=== PATIENT | male | born 1950 | race Caucasian/White ===

== ENCOUNTER 2022-07-22 11:57 | Outpatient (REF) | payer MEDICARE, SELFPAY ==
[2022-07-22 15:12] LABS: TSH reflex Free T4 0.59 uIU/mL (0.32-4.0)
== END 2022-07-22 11:58 | disposition home or self-care (01) ==
LOC: HO.WFDLDS 11:57
PROVIDERS: Visit Provider Hospitalist
DX: R63.5 Abnormal weight gain (principal)
CPT/HCPCS: 36415; 84443

== ENCOUNTER 2022-09-29 12:16 | Outpatient (REF) | payer MEDICARE, SELFPAY ==
[2022-09-30 13:33] LABS: Influenza A PCR NEGATIVE (Negative); Influenza B PCR NEGATIVE (Negative); Resp Syncy Virus RNA Qual PCR NEGATIVE (Negative); SARS COV2 PCR INHOUSE NEGATIVE (Negative)
== END 2022-09-29 12:17 | disposition home or self-care (01) ==
LOC: HO.LNP 12:16
PROVIDERS: Visit Provider Nurse Practitioner Family
DX: Z20.822 Contact with and (suspected) exposure to COVID-19 (principal); R09.89 Other specified symptoms and signs involving the circulatory and respiratory systems
CPT/HCPCS: 0241U

== ENCOUNTER 2022-12-07 11:28 | Outpatient (REF) | payer MEDICARE, SELFPAY ==
[2022-12-07 14:42] LABS: Estimated Average Glucose 154 mg/dL
[2022-12-07 15:12] LABS: Alanine Aminotransferase 15 U/L (0-31); Albumin Level 4.1 g/dL (3.5-5.0); Alkaline Phosphatase 93 U/L (39-117); Anion Gap 12 (12-20); Aspartate Amino Transferase 13 U/L (5-31); Bilirubin Total 0.8 mg/dL (0.0-1.0); Blood Urea Nitrogen 30 mg/dL (9-16); Calcium 9.1 mg/dL (8.4-10.2); Carbon Dioxide 29 mmol/L (22-29); Chloride 105 mmol/L (96-108); Cholesterol 234 mg/dL; Estimated Glomerular Filt Rate 56; Glucose Fasting 205 mg/dL (60-99); HDL Cholesterol 75 mg/dL; LDL Cholesterol Calculated 145 mg/dl; Potassium 5.1 mmol/L (3.3-5.1); Sodium 141 mmol/L (135-145); Total Protein 6.9 g/dL (6.5-8.0); Triglycerides 71 mg/dL; Uric Acid 6.3 mg/dL (2.4-5.7)
[2022-12-07 15:27] LABS: Erythrocyte Sedimentation Rate 27 MM/HR (0-20)
[2022-12-08 14:58] LABS: CRP High Sensitivity 3.8 mg/L
[2022-12-12 14:29] LABS: Vitamin D 25-OH, D2 <4 ng/mL; Vitamin D 25-OH, D3 28 ng/mL; Vitamin D 25-OH, Total 28 ng/mL (30-100)
== END 2022-12-07 11:29 | disposition home or self-care (01) ==
LOC: HO.WFDLDS 11:28
PROVIDERS: Visit Provider Hospitalist
DX: Z13.220 Encounter for screening for lipoid disorders (principal); E11.9 Type 2 diabetes mellitus without complications; E55.9 Vitamin D deficiency, unspecified; M15.0 Primary generalized (osteo)arthritis; M25.571 Pain in right ankle and joints of right foot; I10 Essential (primary) hypertension
CPT/HCPCS: 36415; 80053; 80061; 82306; 83036; 84550; 85652; 86141

== ENCOUNTER 2023-01-20 13:33 | Outpatient (REF) | payer MEDICARE, SELFPAY ==
--- NOTE | ~2023-01-20 | MM_ITS ---
EXAMINATION: MM SCREENING DIGITAL BREAST TOMOSYNTHESIS, BILATERAL CLINICAL INFORMATION: Screening. Asymptomatic. Prior vhp-or-lrgaq mammography currently unavailable. The lifetime risk of breast cancer based on the Tyrer-Cuzick Model is 3%. COMPARISON: None. TECHNIQUE: Digital breast tomosynthesis is performed in both the craniocaudal and mediolateral oblique views along with computer-aided detection (CAD). Synthesized 2D images are generated from the tomosynthesis. Additional left CC view is provided. FINDINGS: There are scattered areas of fibroglandular density (ACR BI-RADS breast composition Category b). Breast tissue composition borders on predominantly fatty. Background stromal and fibroglandular tissue is unremarkable. There is no significant mass, architectural abnormality, or abnormal calcifications. The axilla and skin contours are unremarkable. Radiology department staff will attempt to retrieve prior sbk-td-[id number] mammography to allow for comparison in an addendum report. MM/MM tomosynthesis screening BI IMPRESSION: No mammographic evidence of malignancy. ASSESSMENT: BI-RADS 1: Negative RECOMMENDATION: Routine annual mammography screening. This patient's information was entered into a reminder system with a target due date for their next mammogram.
== END 2023-01-20 13:34 | disposition home or self-care (01) ==
LOC: HO.MAMMO 13:33
PROVIDERS: Visit Provider Hospitalist
DX: Z12.31 Encounter for screening mammogram for malignant neoplasm of breast (principal)
CPT/HCPCS: 77063; 77067

== ENCOUNTER 2023-11-01 11:09 | Outpatient (AMB) | payer MEDICARE, SELFPAY ==
--- NOTE | 2023-11-01 11:29 | A.OFFPC_ITS ---
Vital Signs 11/01/23 11:30 Height 5 ft Weight 184 lb BMI 35.9 BP 130/80 Blood Pressure Location Lt brachial Position Sitting Pulse 79 Pulse Source Pulse Oximeter Pulse Oximetry (%) 99 Oxygen Delivery Method Room Air Intake Visit Reasons: Transfer From ( Medication Review ) Intake Note: Patient is here as a transfer, she would like to discuss brain fog with dizziness, vertigo, and tinnitis. She is discuss pressure. Allergies atorvastatin Adverse Reaction (Verified 11/01/23 11:35) Muscle Pain Medication List - Last Reconciled 11/01/23 by Sandeep Hitchcock MD blood pressure test kit-large check bp daily and as needed cholecalciferol (vitamin D3) 1,250 mcg PO QWEEK ibuprofen 600 mg PO TID irbesartan 150 mg PO DAILY 90 days latanoprost 0.005% 1 drp ophthalmic (eye) QPM magnesium oxide 500 mg PO DAILY melatonin 5 mg PO BEDTIME PRN 3 months sitagliptin phosphate (Januvia) 100 mg PO DAILY timolol 0.5% 1 drp ophthalmic (eye) DAILY Tobacco use date assessed: 11/01/23 Fall risk assessment: No Falls in past year Last assessed Fall Risk: 11/01/23 Dental Screening Dental Screen Date: 11/01/23 Did you have a dental visit in the last 12 months?: Yes Did you have a dental problem in the last 6 months where you did not have access to dental care?: No Was dental information given to patient?: Patient has dentist HPI Transfer From ( Medication Review ) HPI Details Transfer of Care Prior PCP:? Last office visit/CPE: Acute issue(s): Dizziness/Vertigo w tinnitus Mental fogginess Vision changes A1c today 11/01/23 is 6.6%. PMHx: HTN, DM, L leg fracture, Colon polyp 2006 followed q 3 yrs SurgHx: R hip, L tibia, Gallbladder, Partial colon resection FHx: Mom: DM2. Dad: DM2 SocHx: Nonsmoker. EtOH 1 glass 3x-4x per week. No drugs. PFSH Social History Housing: Apartment Patient Tobacco Use Status: Former Tobacco user e-Cigarette/Vaping Use: Never Used Second Hand Smoke Exposure: No service: No Current occupational status: retired Current occupational exposures/hazards: No Cognitive needs: No Hearing needs: No Vision needs: Yes Questionnaire PHQ-9 Over the last 2 weeks, how often have you been bothered by any of the following problems? 1. Little interest or pleasure in doing things: not at all 2. Feeling down, depressed, or hopeless: not at all 3. Trouble falling or staying asleep, or sleeping too much: nearly every day 4. Feeling tired or having little energy: nearly every day 5. Poor appetite or overeating: not at all 6. Feeling bad about yourself - or that you are a failure or have let yourself or your family down: not at all 7. Trouble concentrating on things, such as reading the newspaper or watching television: not at all 8. Moving or speaking so slowly that other people could have noticed. Or the opposite - being so fidgety or restless that you have been moving around a lot more than usual: not at all 9. Thoughts that you would be better off or of hurting yourself in some way: not at all Total score: 6 Source: Developed by Drs. Robbin Ragsdale, Shruthi Nair, Davey Petty and colleagues, with an educational snehal from [employer]. Thrive Questionnaire Date Thrive assessed: 12/07/22 I am a: Patient What is your living situation today?: I have a steady place to live Within the past 12 months, did the food you bought not last and you didn't have the money to get more?: Never true Within the past 12 months, did you worry whether your food would run out before you got money to buy more?: Never true Do you have trouble paying for medicines?: No Do you have trouble getting transportation to medical appointments?: No Do you have trouble paying your heating and electricity bill?: No Do you have trouble taking care of your child, family member or friend?: No Do you have trouble with day-to-day activities such as bathing, preparing meals, shopping, managing finances, etc.?: No Are you currently unemployed and looking for a job?: No Are you interested in more education?: No THRIVE Score: 0 AUDIT C Alcohol Use Questionnaire (AUDIT-C) 1. How often do you have a drink containing alcohol?: 2-3 times a week 2. How many drinks containing alcohol do you have on a typical day when you are drinking?: 1 or 2 3. How often do you have six or more drinks on one occasion?: Never Total Score: 3 JESSICA-7 AMB Questionnaire JESSICA-7 Date JESSICA - 7 assessed: 11/01/23 Feeling nervous, anxious, or on edge: 0 = Not at all Not being able to stop or control worryin = Not at all Worrying too much about different things: 0 = Not at all Trouble relaxin = Not at all Being so restless that it is hard to sit still: 0 = Not at all Becoming easily annoyed or irritable: 0 = Not at all Feeling afraid as if something awful might happen: 0 = Not at all Total JESSICA-7 score (0-4 normal; 5-9 mild; 10-14 moderate; 15-21 severe): 0 Source: Developed by Drs. Robbin Ragsdale, Shruthi Nair, Davey Petty and colleagues, with an educational snehal from [employer]. Review of Systems Const Denies chills, Denies fatigue, Denies fever(s), Denies headache(s) and Denies weakness ENT Reports dizziness and Denies headache(s) Card Denies chest pain, Denies lightheadedness, Denies dyspnea and Denies other (Palpitations) Resp Denies cough, Denies dyspnea, Denies wheezing and Denies other ( shortness of breath) Musc Denies numbness and Denies tingling Neuro Reports dizziness, Denies headache(s), Denies numbness, Denies tingling and Denies weakness Psych Denies anxiety and Denies depression Endo Denies fatigue Aller/Immun Denies wheezing Physical exam (Primary Care) Vital Signs: Last Vital Signs Pulse 79 11/01/23 11:30 BP 130/80 11/01/23 11:30 Pulse Ox 99 11/01/23 11:30 Oxygen Delivery Method Room Air 11/01/23 11:30 BMI result Body Mass Index 35.9 Tobacco/Smoking Status: Tobacco use Status Tobacco use date assessed 11/01/23 11/01/23 11:45 Patient Tobacco Use Status Former Tobacco user 11/01/23 11:45 e-Cigarette/Vaping Use Never Used 11/01/23 11:45 PHQ-9: PHQ-9 Score PHQ-9: Total score 6 11/01/23 11:55 Thrive Assessment: Date of Thrive Assessment Date Thrive assessed 12/07/22 11/01/23 11:45 Const General: no acute distress and well developed Nutritional Appearance: well nourished Orientation/consciousness: patient oriented x3 [facility] Head: Yes normocephalic and Yes atraumatic Eyes Other: Mild nystagmus on the R on eye exam General: appearance normal, both eyes and all related structures Pupils: Equal, round and reactive pupils present EOM: EOMs intact bilaterally Resp Effort & Inspection: normal respiratory effort Auscultation: clear to auscultation bilaterally Cardio Rate: regular rate Rhythm: regular rhythm Heart sounds: S1 normal heart sound present, S2 normal heart sound present, no gallops, no murmurs and no rubs Neuro General: patient oriented x3 and gait normal Cranial nerves: Yes Equal, round and reactive pupils present Psych Affect: normal affect Results AMB Hemoglobin A1c AMB Hemoglobin A1c 6.6 % Last Edit by Arline Ferris CMA on 11/01/23 12:12 Assessment and Plan Assessment & Plan (1) Diabetes: Code(s): E11.9 - Type 2 diabetes mellitus without complications Plan: A1c?6.6%.??Good?control. No?changes?to?current?medication?regimen (2) Dizziness: Code(s): R42 - Dizziness and giddiness Plan: Patient?notes?dizziness?and?unsteadiness?with?vertigo And?she?has?some?nystagmus?with?lateral?gaze.??She?also?notes?some?left- sided?vision?changes?though?she?says?no?cause?has?been?found?by?her?ophthalmolog ist. No?other?focal?neurologic?deficits?were?appreciated?today. Checking?labs?including?inflammatory?markers. Referred?her?to?Neurology (3) Hypertension: Code(s): I10 - Essential (primary) hypertension Plan: Blood?pressure?is?controlled.??Goal?is?less?than?140/90 Continue?current?medication (4) Vision changes: Code(s): H53.9 - Unspecified visual disturbance Plan: As?above,?left-sided?decreased?vision?at?her?oph thalmologist's?has?not?found?a?cause She?is?referred?to?neurology (5) Brain fog: Code(s): R41.89 - Other symptoms and signs involving cognitive functions and awareness Plan: As?above (6) Laboratory exam ordered as part of routine general medical examination: Code(s): Z00.00 - Encounter for general adult medical examination without abnormal findings Plan: Check?labs Orders: Orders Lipid Panel Today Z00.00 - Encounter for general adult medical examination without abnormal findings Microalbumin, Random (w Creat) Today I10 - Essential (primary) hypertension Erythrocyte Sedimentation Rate Today R42 - Dizziness and giddiness Comprehensive [place]. Panel Fast Today Z00.00 - Encounter for general adult medical examination without abnormal findings Complete Blood Count Auto Diff Today Z00.00 - Encounter for general adult medical examination without abnormal findings TSH reflex Free T4 Today Z00.00 - Encounter for general adult medical examination without abnormal findings UA and rflx microscopic Today Z00.00 - Encounter for general adult medical examination without abnormal findings CRP High Sensitivity Today R42 - Dizziness and giddiness Referrals Neurology Referral H53.9 - Unspecified visual disturbance, R41.89 - Other symptoms and signs involving cognitive functions and awareness, R42 - Dizziness and giddiness Coding Level of Care Code Est Pt Level 4 (86588) Diagnoses Diabetes E11.9 Dizziness R42 Hypertension I10 Vision changes H53.9 Brain fog R41.89 Laboratory exam ordered as part of routine general medical examination Z00.00
[2023-11-01 11:30] VITALS: BP 130/80; PULSE 79; O2SAT 99; BMI 35.9
== END 2023-11-01 12:12 | disposition home or self-care (01) ==
PROVIDERS: PCP Hospitalist; Visit Provider Family Medicine
DX: E11.9 Type 2 diabetes mellitus without complications (principal); R42 Dizziness and giddiness; I10 Essential (primary) hypertension; H53.9 Unspecified visual disturbance; R41.89 Other symptoms and signs involving cognitive functions and awareness
CPT/HCPCS: 83036; 99214

== ENCOUNTER 2023-11-03 10:12 | Outpatient (REF) | payer MEDICARE, SELFPAY ==
[2023-11-03 11:29] LABS: MANUAL DIFF FLAG NO
[2023-11-03 11:42] LABS: Basophils Percent Auto 0.5 % (0-2); Eosinophils Absolute Auto 0.1 X10*3/uL (0.0-0.4); Hematocrit 34.1 % (37.0-47.0); Hemoglobin 11.4 g/dl (12.0-16.0); Imm Gran Abs Auto 0.04 X10*3/uL (0.00-0.03); Imm Gran Pct Auto 0.5 % (0.0-0.4); Lymphocytes Absolute Auto 1.3 X10*3/uL (1.2-4.9); Lymphocytes Percent Auto 16.3 % (20-40); Mean Corpuscular HGB Conc 33.4 g/dl (31.0-35.0); Mean Corpuscular Hemoglobin 32.6 pg (27.0-33.0); Mean Corpuscular Volume 97.4 fL (80.0-98.0); Mean Platelet Volume 9.9 fL (9.4-12.3); Monocytes Absolute Auto 0.4 X10*3/uL (0.1-1.2); Monocytes Percent Auto 5.6 % (2-11); Neutrophils Absolute Auto 5.9 x10*3/uL (2.0-8.3); Neutrophils Percent Auto 76.1 % (45-73); Platelet Count 273 X10*3/uL (160-400); Red Cell Distribution Width 12.1 % (11.0-16.0); White Blood Count 7.7 X10*3/uL (4.8-10.8)
[2023-11-03 12:22] LABS: Alanine Aminotransferase 16 U/L (0-31); Alkaline Phosphatase 86 U/L (39-117); Anion Gap 12 (12-20); Aspartate Amino Transferase 16 U/L (5-31); Bilirubin Total 0.5 mg/dL (0.0-1.0); Blood Urea Nitrogen 26 mg/dL (9-16); Calcium 9.5 mg/dL (8.4-10.2); Carbon Dioxide 28 mmol/L (22-29); Chloride 101 mmol/L (96-108); Cholesterol 225 mg/dL (<200); Estimated Glomerular Filt Rate 47; Glucose Fasting 161 mg/dL (60-99); HDL Cholesterol 74 mg/dL (>40); LDL Cholesterol Calculated 137 mg/dL (<100); Potassium 4.9 mmol/L (3.3-5.1); Sodium 136 mmol/L (135-145); Total Protein 6.9 g/dL (6.5-8.0); Triglycerides 70 mg/dL (<150)
[2023-11-03 12:30] LABS: Erythrocyte Sedimentation Rate 21 MM/HR (0-20)
[2023-11-03 12:39] LABS: TSH reflex Free T4 0.54 uIU/mL (0.32-4.0)
[2023-11-03 15:16] LABS: Appearance Urine Cloudy; Color Urine Yellow; Glucose Urine UA Negative (Negative); Leukocyte Esterase Urine Small (1+) (Negative); Nitrite Urine Negative (Negative); PH 5.5 (5.0-9.0); UMIC TRIGGER UA YES; Urine Blood Negative (Negative); Urine Ketones Negative (Negative); Urine Protein Negative (Neg-Trace)
[2023-11-03 16:03] LABS: Bacteria Urine None Seen (None Seen); RBC Urine 0-2 /HPF (0-2); Squamous Epithelial Cell Urine >20 /HPF (0-2)
[2023-11-03 16:20] LABS: Creatinine Urine 222.04 mg/dL; Microalbum/Creatinine Ratio Ur 11.2 ug/mg cr (<30)
[2023-11-05 17:43] LABS: CRP High Sensitivity 1.5 mg/L
== END 2023-11-03 10:13 | disposition home or self-care (01) ==
LOC: HO.WFDLDS 10:12
PROVIDERS: Visit Provider Family Medicine
DX: Z00.00 Encounter for general adult medical examination without abnormal findings (principal); R42 Dizziness and giddiness; I10 Essential (primary) hypertension
CPT/HCPCS: 36415; 80053; 80061; 81001; 81003; 82043; 82570; 84443; 85025; 85652; 86141

== ENCOUNTER 2024-01-26 13:25 | Outpatient (REF) | payer MEDICARE, SELFPAY | END 2024-01-26 13:26 | disposition home or self-care (01) | LOC: HO.MAMMO 13:25 | PROVIDERS: PCP Family Medicine; Visit Provider Hospitalist | DX: Z12.31 Encounter for screening mammogram for malignant neoplasm of breast (principal) | CPT/HCPCS: 77063; 77067 ==

== ENCOUNTER → 2024-01-26 14:00 | Outpatient (BNV) | payer MEDICARE, SELFPAY | PROVIDERS: PCP Family Medicine; Visit Provider Radiology Diagnostic Radiology | DX: Z12.31 Encounter for screening mammogram for malignant neoplasm of breast (principal) | CPT/HCPCS: 77063; 77067 ==

== ENCOUNTER 2024-01-31 13:44 | Outpatient (AMB) | payer MEDICARE, SELFPAY ==
--- NOTE | 2024-01-31 14:04 | MHC.PC.OV ---
Vital Signs 01/31/24 14:05 Height 5 ft Weight 184 lb BMI 35.9 BP 134/82 Blood Pressure Location Lt brachial Position Sitting Pulse 86 Pulse Source Pulse Oximeter Pulse Oximetry (%) 96 Oxygen Delivery Method Room Air Intake Visit Reasons: cpe Intake Note: Patient is here today for her physical. Allergies atorvastatin Adverse Reaction (Verified 01/31/24 14:07) Muscle Pain Medication List - Last Reconciled 01/31/24 by Sandeep Hitchcock MD blood pressure test kit-large check bp daily and as needed cholecalciferol (vitamin D3) 1,250 mcg PO QWEEK ibuprofen 600 mg PO TID irbesartan 150 mg PO DAILY 90 days latanoprost 0.005% 1 drp ophthalmic (eye) QPM magnesium oxide 500 mg PO DAILY melatonin 5 mg PO BEDTIME PRN 3 months sitagliptin phosphate (Januvia) 100 mg PO DAILY timolol 0.5% 1 drp ophthalmic (eye) DAILY Tobacco use date assessed: 01/31/24 Fall risk assessment: No Falls in past year Last assessed Fall Risk: 01/31/24 Dental Screening Dental Screen Date: 11/01/23 HPI cpe HPI Details 73 y/o female presents for an extended exam with f/u labs and health maintenance. Labs were drawn 11/03/23. Reviewed labs with pt. Mild anemia. Triglycerides 70. TC 225. LDL 137. HDL 74. A1c today 01/31/24 7.5%. She is on Januvia. Pt reports ongoing complaints of dizziness/light sensitivity. Had seen ophthalmology about this and pt states work-up had been negative. She reports she has an appt. with neurology February 22. Pt reports ongoing diarrhea. Bone density test about 5-6 years ago. [facility] Social History Housing: Apartment Patient Tobacco Use Status: Former Tobacco user e-Cigarette/Vaping Use: Never Used Second Hand Smoke Exposure: No service: No Current occupational status: retired Current occupational exposures/hazards: No Cognitive needs: No Hearing needs: No Vision needs: Yes Questionnaire Thrive Questionnaire Date Thrive assessed: 12/07/22 JESSICA-7 AMB Questionnaire JESSICA-7 Date JESSICA - 7 assessed: 11/01/23 Source: Developed by Drs. Robbin Ragsdale, Shruthi B.W. Davey Nair and colleagues, with an educational snehal from [employer]. Review of Systems Const Denies chills, Denies fatigue, Denies fever(s), Denies headache(s) and Denies weakness Eyes Denies change in vision ENT Denies dizziness, Denies headache(s), Denies hearing loss, Denies nasal congestion, Denies sinus pain, Denies sinus pressure and Denies sore throat Card Denies chest pain, Denies lightheadedness, Denies dyspnea and Denies other (palpitations) Resp Denies cough, Denies dyspnea and Denies wheezing GI Reports diarrhea Denies hematuria and Denies dysuria Musc Denies abnormal gait, Denies myalgias, Denies arthralgias, Denies numbness and Denies tingling Skin/Breast Denies rash, Denies unusual bruising and Denies wounds Neuro Denies abnormal gait, Denies dizziness, Denies headache(s), Denies memory loss, Denies numbness, Denies Sensory deficit (Neuro), Denies tingling and Denies weakness Psych Denies anxiety, Denies depression and Denies memory loss Endo Denies cold intolerance, Denies fatigue, Denies heat intolerance, Denies polydipsia and Denies polyuria Jesus/Lymph Denies easy bleeding and Denies easy bruising Aller/Immun Denies wheezing Physical exam (Primary Care) Vital Signs: Last Vital Signs Pulse 86 01/31/24 14:05 BP 134/82 01/31/24 14:05 Pulse Ox 96 01/31/24 14:05 Oxygen Delivery Method Room Air 01/31/24 14:05 BMI result Body Mass Index 35.9 Tobacco/Smoking Status: Tobacco use Status Tobacco use date assessed 01/31/24 01/31/24 14:13 Patient Tobacco Use Status Former Tobacco user 01/31/24 14:13 e-Cigarette/Vaping Use Never Used 01/31/24 14:13 Thrive Assessment: Date of Thrive Assessment Date Thrive assessed 12/07/22 01/31/24 14:13 Const General: no acute distress, well developed, alert and awake Nutritional Appearance: well nourished Orientation/consciousness: patient oriented x3 [facility]EN[facility] Head: Yes normocephalic and Yes atraumatic Ears: hearing grossly normal bilaterally and TM's normal bilaterally General nose exam: Normal external nose present and Normal nares present Mouth: Normal oral and palatal mucosa present and moist mucous membranes Teeth and gingiva: dentition normal Throat: Yes posterior oropharynx normal Eyes General: appearance normal, both eyes and all related structures Pupils: Equal, round and reactive pupils present and Pupil accommodation reflex normal EOM: EOMs intact bilaterally Neck Neck: Yes normal visual inspection, Yes no lymphadenopathy and Yes trachea midline Thyroid: Thyroid normal Carotids: no bruits Lymphatic: no lymphadenopathy noted Chest Chest palpation & inspection: normal inspection of the chest Resp Effort & Inspection: normal respiratory effort Auscultation: clear to auscultation bilaterally Cardio Rate: regular rate Rhythm: regular rhythm Heart sounds: S1 normal heart sound present, S2 normal heart sound present, no gallops, no murmurs and no rubs Bruits: no abdominal aortic bruits and no carotid bruits GI Palpation (GI): No Abdominal aortic bruit present, Soft to palpation, nontender, No hepatosplenomegaly present and No Rebound tenderness present Auscultation: normal bowel sounds General: Yes no CVA tenderness Back/Spine/Pelvis Back: no CVA tenderness Cervical Spine: cervical ROM normal and No Cervical spine tenderness Thoracic/Lumbar Spine: thoraco-lumbar ROM normal, No pain with thoraco-lumbar ROM, No thoracic spinal tenderness and No lumbar spinal tenderness Skin Lesions: no lesions Rashes: no rashes Trauma: no lacerations or abrasions Wounds: no wounds Nails: normal Neuro General: patient oriented x3 Cranial nerves: Yes Equal, round and reactive pupils present Cognition (Neuro): normal cognition Gait exam (Neuro): Normal gait present Motor exam (neuro): 5/5 motor strength present throughout Sensory Exam: No Sensory deficit (Neuro) Deep tendon reflexes (DTR's): Right patellar reflex intensity grade: 2+ and Left patellar reflex intensity grade: 2+ Extrem General: Yes normal to inspection and No edema Psych Appearance: grossly normal Affect: normal affect Attitude: cooperative Thought process: Normal thought process present Results AMB Hemoglobin A1c AMB Hemoglobin A1c 7.5 % Last Edit by Yaneth Beckham CMA on 01/31/24 14:29 Results Reviewed Results Reviewed: Laboratory Last Values Hgb A1c (Clinic) 7.5 % (4.0-6.0) H 01/31/24 14:20 Assessment and Plan Assessment & Plan (1) Diabetes: Code(s): E11.9 - Type 2 diabetes mellitus without complications Plan: A1c?7.5%.??Goal?is?less?than?7.0% Continue?Januvia Adding?back?some?Trulicity?which?she?has?taken?before (2) Dizziness: Code(s): R42 - Dizziness and giddiness Plan: Ongoing?dizziness?and?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 Concern?for?occipital?stroke?and?possible?cerebellar?symptoms?as?well Checking?carotid?duplex Patient?has?an?appointment?with?Neurology?in?the?middle?of?next?month (3) Hypertension: Code(s): I10 - Essential (primary) hypertension Plan: Blood?pressure?is?controlled.??Goal?is?currently?less?than?140/90 Continue?current?medication If?patient?has?evidence?of?prior?stroke,?will?advise?a?goal?of?less?than?130/80 (4) Diarrhea: Code(s): R19.7 - Diarrhea, unspecified Plan: Chronic?diarrhea History?of?ulcerative?colitis Will?refer?to?Gastroenterology Advised?good?hydration Avoid?trigger?foods (5) Cervicalgia: Code(s): M54.2 - Cervicalgia Plan: Trapezius?and?neck?muscle?pain?and?tenderness?also?posterior?scalp?tenderness. Referred?to?physical?therapy (6) Shoulder pain: Code(s): M25.519 - Pain in unspecified shoulder Plan: Bilateral?shoulder?pain?as?well?as?trapezius?muscle?pain?as?above. Referred?to?physical?therapy (7) Hyperlipidemia: Code(s): E78.5 - Hyperlipidemia, unspecified Plan: LDL?cholesterol?is?above?goal?of?less?than?100?for?patient?with?diabetes. Some?concerns?regarding?possible?stroke?and?awaiting?appointment?with?Neurology. May?need?goal?of?less?than?70 Started?her?on?atorvastatin.??She?has?had?difficulty?tolerating?simvastatin?in?the?past. 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?in?[place] History?of?ulcerative?colitis Patient?is?referred?to?GI (11) Screening for osteoporosis: Code(s): Z13.820 - Encounter for screening for osteoporosis Plan: Overdue?for?screening?for?osteoporosis Order (12) Adult general medical exam: Code(s): Z00.00 - Encounter for general adult medical examination without abnormal findings Plan: 73-year-old?female?presents?for?extended?exam Orders: Orders AMB Hemoglobin A1c Today Z13.9 - Encounter for screening, unspecified PT Evaluation and Treatment Today M25.519 - Pain in unspecified shoulder, M54.2 - Cervicalgia, R42 - Dizziness and giddiness US carotid duplex BI Today R42 - Dizziness and giddiness XR DEXA axial skeleton Today M81.0 - Age-related osteoporosis without current pathological fracture Complete Blood Count Auto Diff Today Z00.00 - Encounter for general adult medical examination without abnormal findings Comprehensive [place]. Panel Fast Today Z00.00 - Encounter for general adult medical examination without abnormal findings Lipid Panel Today Z00.00 - Encounter for general adult medical examination without abnormal findings Referrals Gastroenterology Referral K51.90 - Ulcerative colitis, unspecified, without complications, R19.7 - Diarrhea, unspecified Medications: New dulaglutide (Trulicity) 0.75 mg (0.5 mL) subcut QWEEK 28 days 2 mL 3RF atorvastatin 20 mg PO BEDTIME 90 days 90 tabs 1RF Coding Level of Care Code Est Pt Level 4 (13104) Diagnoses Diabetes E11.9 Dizziness R42 Hypertension I10 Diarrhea R19.7 Cervicalgia M54.2 Shoulder pain M25.519 Hyperlipidemia E78.5 Mild anemia D64.9 Screening for breast cancer Z12.39 Screening for colon cancer Z12.11 Screening for osteoporosis Z13.820 Adult general medical exam Z00.00
[2024-01-31 14:05] VITALS: BP 134/82; PULSE 86; O2SAT 96; BMI 35.9
== END 2024-01-31 15:06 | disposition home or self-care (01) ==
LOC: HO.HMGFM 13:55
PROVIDERS: PCP Family Medicine; Visit Provider Family Medicine
DX: E11.9 Type 2 diabetes mellitus without complications (principal)
CPT/HCPCS: 83036; 99214

== ENCOUNTER 2024-02-10 14:18 | Outpatient (REF) | payer MEDICARE, SELFPAY ==
--- NOTE | ~2024-02-10 | US_ITS ---
EXAMINATION: US EXTRACRANIAL CAROTID DUPLEX, BILATERAL CLINICAL INFORMATION: Dizziness and giddiness COMPARISON: None available. TECHNIQUE: Real-time ultrasound and Doppler techniques (integrating B-mode 2-D vascular images, Doppler spectral analysis and color-flow Doppler imaging) were utilized to interrogate the extracranial carotid arteries, the vertebral arteries and proximal subclavian arteries bilaterally. The degree of stenosis is determined by criteria similar to NASCET. FINDINGS: Right Side: 1. There is no atherosclerotic plaque seen in the bifurcation/proximal ICA region. 2. The common carotid artery PSV proximally is 108 cm/s and distally 95 cm/s. 3. The proximal internal carotid artery velocities are 72 cm/s systolic and 14 cm/s diastolic. 4. The proximal external carotid artery PSV is 139 cm/s. 5. The vertebral artery shows antegrade flow. 6. The subclavian artery waveforms are normal. Left Side: 1. There is no atherosclerotic plaque seen in the bifurcation/proximal ICA region. 2. The common carotid artery PSV proximally is 120 cm/s and distally 101 cm/s. 3. The proximal internal carotid artery velocities are 97 cm/s systolic and 20 cm/s diastolic. 4. The proximal external carotid artery PSV is 132 cm/s. 5. The vertebral artery shows antegrade flow. 6. The subclavian artery waveforms are normal. Incidental note is made of a mildly enlarged lymph node along the left internal carotid artery measuring 1.1 x 0.6 x 0.7 cm. US/US carotid duplex BI IMPRESSION: 1. RIGHT: Normal right internal carotid artery without atherosclerotic plaque or hemodynamically significant stenosis. 2. LEFT: Normal left internal carotid artery without atherosclerotic plaque or hemodynamically significant stenosis.
== END 2024-02-10 14:19 | disposition home or self-care (01) ==
LOC: HO.US 14:18
PROVIDERS: PCP Family Medicine; Visit Provider Family Medicine
DX: R42 Dizziness and giddiness (principal)
CPT/HCPCS: 93880

== ENCOUNTER 2024-02-23 09:04 | Outpatient (AMB) | payer MEDICARE, SELFPAY ==
--- NOTE | 2024-02-23 09:09 | A.OFFVIS_ITS ---
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 Func - Confirm Intake Note: Pt presents for new pt evaluation for vertigo. 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 she also reports pressure points through out the body. she was fine until 1 year ago - she had a bout vertigo ( spinning sensation) , she did some exercises which helped when turns to left but still has dizziness when she turns to right . she feels like she is not right in space. she denies double vision. she also has chronic tinnitus which worsened in the past 1 year.she denies headaches but has light sensitivity . she started noticing neck tightness and discomfort 1 month ago and it radiates to the back of skull and neck and she has a sensitive spot . she denies depression or anxiety. ABout 6 months ago she started noticing points in her body that are painful and she calls them pressure points/ Ifs he moves her head quickly she feels like she is losing her vision briefly. she has trouble falling asleep and staying asleep and has daytime fatigue. 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 No head injuries. [facility] Medical History (Updated 02/23/24 @ 09:44 by Delisa Andrade MD) Insomnia Hypersomnia Vertigo Surgical History (Updated 02/23/24 @ 09:18 by Cinda Cochran CMA) Hx of cholecystectomy History of hip replacement History of colon resection Social History Housing: Apartment Patient Tobacco Use Status: Former Tobacco user e-Cigarette/Vaping Use: Never Used Second Hand Smoke Exposure: No service: No Current occupational status: retired Current occupational exposures/hazards: No Cognitive needs: No Hearing needs: No Vision needs: Yes Physical Exam Vital Signs: Last Vital Signs Pulse 80 02/23/24 09:14 Resp 16 05/15/24 09:14 BP 138/82 02/23/24 09:14 Pulse Ox 96 02/23/24 09:14 Oxygen Delivery Method Room Air 02/23/24 09:14 BMI result Body Mass Index 35.9 Const General: cooperative, healthy appearing and comfortable Nutritional Appearance: overweight Orientation/consciousness: patient oriented x3 Limitations: no limitations HEENT Other: neck tightness- left levator and splenius tenderness mild restricted range of motion Eyes Pupils: Equal, round and reactive pupils present Neuro General: patient oriented x3, gait normal, tone normal, moves all extremities and no focal motor deficits Cranial nerves: Yes Facial sensation intact/muscles of mastication intact, Yes Equal, round and reactive pupils present, Yes Bilaterally intact EOM present, Yes Nystagmus not present, Yes Normal facial strength present, Yes Midline tongue present, Yes Symmetric palate elevation present and Yes Ability to bilaterally elevate shoulders present Cognition (Neuro): normal cognition Gait exam (Neuro): Normal gait present Motor exam (neuro): 5/5 motor strength present throughout and Normal motor muscle tone present throughout Deep tendon reflexes (DTR's): Right triceps reflex intensity grade: 1+, Left triceps reflex intensity grade: 1+, Rt Biceps (C5, C6): 1+, Left biceps reflex intensity grade: 1+, Right brachioradialis reflex intensity grade: 1+, Left brachioradialis reflex intensity grade: 1+, Right patellar reflex intensity gra de: 1+ and Left patellar reflex intensity grade: 1+ Coordination: [id number] test normal Assessment & Plan Assessment & Plan (1) Vertigo: Comment: chronis with tinnitus / menieres ?vestibular dysfunction? vestibular migraine Code(s): R42 - Dizziness and giddiness Category: Medical (2) Hypersomnia: Code(s): G47.10 - Hypersomnia, unspecified Category: Medical (3) Insomnia: Code(s): G47.00 - Insomnia, unspecified Category: Medical (4) Cervicalgia: Comment: ? cervical dystonia related to arthritis Code(s): M54.2 - Cervicalgia Category: Medical Plan Home sleep study to r/o sleep apnea Check Vit b 12 ARY ENT eval MRI Brain - to r/o brainstem lesions I will trial her on gabapentin 100mg 1-3 caps qhs for neck pain Orders: Orders RT home sleep study Today G47.00 - Insomnia, unspecified, G47.10 - Hypersomnia, unspecified ARY Reflex Titer and Pattern Today G47.10 - Hypersomnia, unspecified, M25.519 - Pain in unspecified shoulder, M54.2 - Cervicalgia Vitamin B12 and Folate Today G47.10 - Hypersomnia, unspecified, M25.519 - Pain in unspecified shoulder, M54.2 - Cervicalgia MR head/brain wo con Today R42 - Dizziness and giddiness Referrals Ear/Nose/Throat Referral R42 - Dizziness and giddiness Medications: New gabapentin 1-3 caps orally bedtime; 90 caps 6RF Coding Level of Care Code New Pt Level 4 (19196) Diagnoses Vertigo R42 Hypersomnia G47.10 Insomnia G47.00 Cervicalgia M54.2
[2024-02-23 09:14] VITALS: BP 138/82; PULSE 80; RESP 16; O2SAT 96; BMI 35.9
== END 2024-02-23 09:54 | disposition home or self-care (01) ==
PROVIDERS: PCP Family Medicine; Visit Provider Psychiatry & Neurology Neurology
DX: R42 Dizziness and giddiness (principal); G47.10 Hypersomnia, unspecified; G47.00 Insomnia, unspecified; M54.2 Cervicalgia
CPT/HCPCS: 99204

== ENCOUNTER 2024-02-23 10:05 | Outpatient (REF) | payer MEDICARE, SELFPAY ==
[2024-02-23 13:24] LABS: Folate 5.6 ng/mL (> or = 4.0); Vitamin B12 409 pg/mL (200-900)
[2024-02-25 20:39] LABS: Anti Nuclear Antibody Screen NEGATIVE (NEGATIVE)
== END 2024-02-23 10:06 | disposition home or self-care (01) ==
LOC: HO.HKASLDS 10:05
PROVIDERS: Visit Provider Psychiatry & Neurology Neurology
DX: M54.2 Cervicalgia (principal); M25.519 Pain in unspecified shoulder; G47.10 Hypersomnia, unspecified; R42 Dizziness and giddiness; G47.00 Insomnia, unspecified
CPT/HCPCS: 36415; 82607; 82746; 86038; 99202

== ENCOUNTER 2024-02-24 13:35 | Outpatient (REF) | payer MEDICARE, SELFPAY ==
--- NOTE | ~2024-02-24 | MM_ITS ---
EXAMINATION: BONE DENSITOMETRY CLINICAL INDICATION: Osteoporosis. COMPARISON: This is the patient's baseline examination. TECHNIQUE: Using a 66. com DXA System (software version: 13.1) manufactured by [employer], dual-energy x-ray absorptiometry was performed of the lumbar spine and left hip. The images are of good technical quality. Summary results are attached. FINDINGS: LEFT FEMUR, NECK: BMD 0.907 g/cm2, Z-score 0.6, T-score -0.9, normal. LEFT FEMUR, TOTAL: BMD 1.031 g/cm2, Z-score 1.5, T-score 0.2, normal. AP SPINE L1-L4: BMD 1.273 g/cm2, Z-score 2.0, T-score 0.8, normal. IDENTIFIED RISK FACTORS: Menopause, height loss, history of fracture (adult), secondary osteoporosis (intestinal or bowel disease). HISTORY OF FRACTURE: Other. MEDICATIONS: Vitamin D. MM/XR DEXA axial skeleton IMPRESSION: 1. DIAGNOSIS: Normal bone density based on the lowest T-score value of -0.9 in the femoral neck applying World Health Organization criteria. 2. 10-YEAR FRACTURE RISK PREDICTION, FRAX: According to the guidelines, FRAX calculation should only be performed on patients in the osteopenia bone density category. Therefore, FRAX was not performed on this patient. 3. Treatment Recommendations: NOF guidelines recommend consideration for treatment in postmenopausal women and men age 50 and older presenting with the following: -A hip or vertebral (clinical or morphometric) fracture. -T-score less than or equal to -2.5 at the femoral neck or spine after appropriate evaluation to exclude secondary causes. -Low bone mass at the hip or spine and a 10-year fracture probability by FRAX of greater than or equal to 3% for hip fracture or greater than or equal to 20% for major osteoporotic fracture based on the [place] adapted WHO algorithm. 4. Other Recommendations: All treatment decisions require clinical judgment and consideration of individual patient factors, including patient preferences, comorbidities, previous drug use, risk factors not captured in the FRAX model (e.g. frailty, falls, vitamin D deficiency, increased bone turnover, interval significant decline in bone density) and possible under or overestimation of fracture risk by FRAX. FUTURE SCAN RECOMMENDATION: People with diagnosed cases of osteoporosis or at high risk for fracture should have regular bone mineral density tests. For patients eligible for Medicare, routine testing is allowed once every 2 years. The testing frequency can be increased to one year for patients who have rapidly progressing disease, those who are receiving or discontinuing medical therapy to restore bone mass, or have additional risk factors.
== END 2024-02-24 13:36 | disposition home or self-care (01) ==
LOC: HO.MAMMO 13:35
PROVIDERS: PCP Family Medicine; Visit Provider Family Medicine
DX: M81.0 Age-related osteoporosis without current pathological fracture (principal)
CPT/HCPCS: 77080

== ENCOUNTER → 2024-04-10 13:27 | Outpatient (REF) | payer MEDICARE, SELFPAY | LOC: HO.SL 13:27 | PROVIDERS: PCP Family Medicine; Visit Provider Psychiatry & Neurology Neurology | DX: G47.33 Obstructive sleep apnea (adult) (pediatric) (principal); G47.10 Hypersomnia, unspecified; G47.00 Insomnia, unspecified | CPT/HCPCS: 95806 ==

== ENCOUNTER → 2024-04-10 13:40 | Outpatient (BNV) | payer MEDICARE, SELFPAY | PROVIDERS: PCP Family Medicine; Visit Provider Psychiatry & Neurology Neurology | DX: G47.33 Obstructive sleep apnea (adult) (pediatric) (principal) | CPT/HCPCS: 95806 ==

== ENCOUNTER 2024-04-14 10:00 | Outpatient (REF) | payer MEDICARE, SELFPAY ==
--- NOTE | ~2024-04-14 | MR_ITS ---
EXAMINATION: MR BRAIN WITHOUT CONTRAST CLINICAL INFORMATION: Vertigo COMPARISON: None TECHNIQUE: Multiplanar multisequence MR imaging of the brain was obtained without intravenous contrast. FINDINGS: There is no acute infarct on diffusion-weighted imaging. There is no intracranial hemorrhage on iron-sensitive imaging. No extra-axial collection or mass effect/herniation. There are several scattered foci of nonspecific supratentorial white matter T2/FLAIR signal abnormality. No hydrocephalus. Mild age-appropriate generalized cerebral volume loss with commensurate sulcal and ventricular prominence. The major flow voids at the skull base are preserved. The midline structures are normal. The cerebellar tonsils are normally positioned. The craniocervical junction is normal. Degenerative changes in the upper cervical spine including severe left facet arthropathy at C2-C3. Marrow signal is within normal limits. The visualized soft tissues are without significant abnormality. Small right larger than left maxillary sinus retention cysts. MR/MR head/brain wo con IMPRESSION: Unremarkable noncontrast MRI of the brain.
== END 2024-04-14 10:01 | disposition home or self-care (01) ==
LOC: HO.MRI 10:00
PROVIDERS: PCP Family Medicine; Visit Provider Psychiatry & Neurology Neurology
DX: R42 Dizziness and giddiness (principal)
CPT/HCPCS: 70551

== ENCOUNTER 2024-04-21 16:15 | Outpatient (AMB) | payer MEDICARE, SELFPAY ==
[2024-04-21 16:37] VITALS: BP 120/60; PULSE 77; O2SAT 97; BMI 35.3
--- NOTE | 2024-04-21 16:37 | A.OFFPC_ITS ---
Vital Signs 04/21/24 16:37 Height 5 ft Weight 181 lb BMI 35.3 BP 120/60 Blood Pressure Location Lt brachial Position Sitting Pulse 77 Pulse Source Pulse Oximeter Pulse Oximetry (%) 97 Oxygen Delivery Method Room Air Intake Visit Reasons: f/u hypertension Intake Note: Patient is here to follow up on hypertension, and to follow up on MRI, which has not yet been read. Allergies No Known Allergies Allergy (Verified 04/21/24 16:40) Tobacco use date assessed: 01/31/24 Dental Screening Dental Screen Date: 11/01/23 HPI f/u hypertension HPI Details 74 y/o female presents to f/u hypertensi on, diabetes. Blood pressure today 120/60, 77p. She is on irbesartan 150mg daily. She reports ongoing diarrhea - last episode 1-2 weeks ago. Denies any blood in stools. Denies any nausea. Last A1c 7.5%. Had continued Januvia and added Trulicity but pt notes she has not started her Trulicity yet as she had been unsure if she should take this with Januvia. A1c today 04/21/24 6.3%. Does not have a way to check her blood sugars at home. [facility] Medical History (Updated 02/23/24 @ 09:44 by Delisa Andrade MD) Insomnia Hypersomnia Vertigo Surgical History (Updated 02/23/24 @ 09:18 by Cinda Cochran CMA) Hx of cholecystectomy History of hip replacement History of colon resection Social History Housing: Apartment Patient Tobacco Use Status: Former Tobacco user e-Cigarette/Vaping Use: Never Used Second Hand Smoke Exposure: No service: No Current occupational status: retired Current occupational exposures/hazards: No Cognitive needs: No Hearing needs: No Vision needs: Yes Questionnaire Thrive Questionnaire Date Thrive assessed: 12/07/22 JESSICA-7 AMB Questionnaire JESSICA-7 Date JESSICA - 7 assessed: 11/01/23 Source: Developed by Drs. Robbin Ragsdale, Shruthi Nair, Davey Petty and colleagues, with an educational snehal from [employer]. Physical exam (Primary Care) Vital Signs: Last Vital Signs Pulse 77 04/21/24 16:37 BP 120/60 04/21/24 16:37 Pulse Ox 97 07/12/24 16:37 Oxygen Delivery Method Room Air 04/21/24 16:37 BMI result Body Mass Index 35.3 Tobacco/Smoking Status: Tobacco use Status Tobacco use date assessed 01/31/24 04/21/24 16:38 Patient Tobacco Use Status Former Tobacco user 04/21/24 16:38 e-Cigarette/Vaping Use Never Used 04/21/24 16:38 Thrive Assessment: Date of Thrive Assessment Date Thrive assessed 12/07/22 04/21/24 16:38 Results AMB Hemoglobin A1c AMB Hemoglobin A1c 6.3 % Last Edit by Arline Ferris CMA on 04/21/24 17:23 Assessment and Plan Assessment & Plan (1) Hypertension: Code(s): I10 - Essential (primary) hypertension Plan: Blood?pressure?is?well?controlled.??Goal?is?less?than?140/90 Continue?current?medication (2) Diabetes: Code(s): E11.9 - Type 2 diabetes mellitus without complications Plan: Patient?had?not?started?Trulicity?but?she?has?made?lifestyle?changes She?continues?Januvia A1c?today?is?6.3%.??Good?control.??Goal?is?less?than?7.0% Continue?Januvia?and?diabetic?diet (3) Hyperlipidemia: Code(s): E78.5 - Hyperlipidemia, unspecified Plan: Labs?were?ordered?but?patient?has?not?had?them?drawn?yet. She?can?get?them?drawn?prior?to?next?visit (4) Cervicalgia: Comment: ? cervical dystonia related to arthritis Code(s): M54.2 - Cervicalgia Plan: Cervicalgia?and?also?vertigo. Holding?off?on?starting ?physical?therapy?while?neurology?works?up?visual?field?deficit. MRI?has?been?acquired?but?is?pending?results. (5) Diarrhea: Code(s): R19.7 - Diarrhea, unspecified Plan: This?appears?to?be?resolving.??She?has?been?using?some?Imodium. Can?continue?this She?will?let?me?know?if?she?has?any?bl ood?or?has?any?fevers?chills?nausea?vomiting?or?other?concerning?symptoms Hydrate?well Orders: Orders AMB Hemoglobin A1c Today Z13.9 - Encounter for screening, unspecified Coding Level of Care Code Est Pt Level 4 (69829) Diagnoses Hypertension I10 Diabetes E11.9 Hyperlipidemia E78.5 Cervicalgia M54.2 Diarrhea R19.7
== END 2024-04-27 15:20 | disposition home or self-care (01) ==
PROVIDERS: PCP Family Medicine; Visit Provider Family Medicine
DX: I10 Essential (primary) hypertension (principal); E11.69 Type 2 diabetes mellitus with other specified complication; E78.5 Hyperlipidemia, unspecified; M54.2 Cervicalgia; R19.7 Diarrhea, unspecified
CPT/HCPCS: 83036; 99214

== ENCOUNTER 2024-05-29 10:40 | Outpatient (AMB) | payer MEDICARE, SELFPAY ==
[2024-05-29 10:58] VITALS: BP 165/72; PULSE 73; BMI 36.6
--- NOTE | 2024-05-29 10:58 | MHC.OFFVIS ---
Vital Signs 05/29/24 10:58 Height 5 ft Weight 187 lb 6.287 oz BMI 36.6 BP 165/72 H Blood Pressure Location Rt brachial Position Sitting Pulse 73 Intake Visit Reasons: Ulcerative Colitis Intake Note: Rajni presents in the office as a new patient for UC. CC: She states that she was sent here today - she has projectile diarrhea after the first meal of the day. She states there is sometimes blood when she has diarrhea 4 times in a row. She has a history of colon cancer and had 10 inches of her colon removed due to that. Allergies No Known Allergies Allergy (Verified 05/29/24 11:00) HPI HPI Ulcerative Colitis: Details: HPI 74 yr old f here for assessment She has had constant brain fog for months, told she has RENA and and waiting for a machine she had brain MRI which was nml she has a painful spot in the head she has projectile diarrhea for 8 months she can have some blood in stool no nausea or vomiting appetite is good no dysphagia no GERD she had partial colectomy for flat polyp 2011 she moved back from [place] 2 yrs ago and last colonoscopy 3 yr ago TESTS: carotid us-- nml MRI: no masses, or infarcts ROS: Constitutional : No Weight loss, No Fever, No Chills ENT/Mouth : No sore throat, No Rhinorrhea Eyes: No Swelling, No Redness Cardiovascular : No Chest Pain, No SOB, No Edema Respiratory : No Cough, No Sputum, No Wheezing Gastrointestinal : see HPI Genitourinary : NO Dysuria, No Urinary Frequency, No Hematuria, No Urgency Musculoskeletal : + joint pain, No Myalgias, No Joint Swelling Skin : No Skin Lesions, No rash Neuro : No Weakness, + Numbness--left arm , + Dizziness, No Headache Psych : No Anxiety/Panic, No Depression Heme/Lymph: No Bruising, No Lymphadenopathy Endocrine : No Polyuria, No Polydipsia All other systems reviewed and are negative. Medical History Insomnia Hypersomnia Vertigo Surgical History (Updated 02/23/24 @ 09:18 by Cinda Cochran CMA) Hx of cholecystectomy History of hip replacement History of colon resection Social History ex smoker, no drugs, no alcohol EXAM: GENERAL: The patient is well developed and nontoxic. VITAL SIGNS:see workflow HEENT: Nonicteric sclerae, PERRLA, EOMI. Oropharynx clear. Moist mucous membranes. Conjunctivae appear well perfused. No thyroid mass. CHEST: Chest wall is nontender. HEART: Regular rate and rhythm without murmurs. LUNGS: Clear to auscultation bilaterally. ABDOMEN: Soft, positive bowel sounds, nontender, no organomegaly.no flank tenderness SKIN: No rash, no excessive bruising, petechiae, or purpura. NEUROLOGIC: Cranial nerves II-XII intact without motor/sensory deficit. Psych: normal affect A/P: 1/ Abn bowel habit, anemia, with hx of advanced polyp s/p resection, might have bile acid malabsorption, need to exclude coloni lesion, gastritis, enteritis, panc insuff PLAN: 1/ labs as ordered incl nutritional screen, panc elastase 2/ EGD and colonoscopy-suprep, stop januvia 3 d before 3/ maybe trial of cholestyramine PFSH Medical History Insomnia Hypersomnia Vertigo Surgical History Hx of colonoscopy Hx of cholecystectomy History of hip replacement History of colon resection Social History Housing: Apartment Patient Tobacco Use Status: Former Tobacco user e-Cigarette/Vaping Use: Never Used Second Hand Smoke Exposure: No service: No Current occupational status: retired Current occupational exposures/hazards: No Cognitive needs: No Hearing needs: No Vision needs: Yes Physical Exam Vital Signs: Last Vital Signs Pulse 73 05/29/24 10:58 BP 165/72 H 05/29/24 10:58 BMI result Body Mass Index 36.6 Assessment & Plan Assessment & Plan (1) Brain fog: Code(s): R41.89 - Other symptoms and signs involving cognitive functions and awareness Category: Medical Plan: see above (2) Mild anemia: Code(s): D64.9 - Anemia, unspecified Category: Medical Plan: see above (3) Nutrition deficiency due to insufficient food: Code(s): E63.9 - Nutritional deficiency, unspecified; T73.0XXA - Starvation, initial encounter Category: Medical Plan: see above Orders: Orders Vitamin K1 Today D64.9 - Anemia, unspecified, E63.9 - Nutritional deficiency, unspecified, M79.10 - Myalgia, unspecified site, R41.89 - Other symptoms and signs involving cognitive functions and awareness, T73.0XXA - Starvation, initial encounter Vitamin E Today D64.9 - Anemia, unspecified, E63.9 - Nutritional deficiency, unspecified, M79.10 - Myalgia, unspecified site, R41.89 - Other symptoms and signs involving cognitive functions and awareness, T73.0XXA - Starvation, initial encounter Vitamin B5 (Pantothenic Acid) Today D64.9 - Anemia, unspecified, E63.9 - Nutritional deficiency, unspecified, M79.10 - Myalgia, unspecified site, R41.89 - Other symptoms and signs involving cognitive functions and awareness, T73.0XXA - Starvation, initial encounter Vitamin B12 and Folate Today D64.9 - Anemia, unspecified, E63.9 - Nutritional deficiency, unspecified, M79.10 - Myalgia, unspecified site, R41.89 - Other symptoms and signs involving cognitive functions and awareness, T73.0XXA - Starvation, initial encounter Vitamin B1 Today D64.9 - Anemia, unspecified, E63.9 - Nutritional deficiency, unspecified, M79.10 - Myalgia, unspecified site, R41.89 - Other symptoms and signs involving cognitive functions and awareness, T73.0XXA - Starvation, initial encounter Immunoglobulins,IgG IgA IgM Today D64.9 - Anemia, unspecified, E63.9 - Nutritional deficiency, unspecified, M79.10 - Myalgia, unspecified site, R41.89 - Other symptoms and signs involving cognitive functions and awareness, T73.0XXA - Starvation, initial encounter Lactoferrin, Fecal, Quant. Today D64.9 - Anemia, unspecified, E63.9 - Nutritional deficiency, unspecified, K51.50 - Left sided colitis without complications, M79.10 - Myalgia, unspecified site, R41.89 - Other symptoms and signs involving cognitive functions and awareness, T73.0XXA - Starvation, initial encounter Transglutaminase IgA Today D64.9 - Anemia, unspecified, E63.9 - Nutritional deficiency, unspecified, M79.10 - Myalgia, unspecified site, R41.89 - Other symptoms and signs involving cognitive functions and awareness, T73.0XXA - Starvation, initial encounter Angiotensin Converting Enzyme Today D64.9 - Anemia, unspecified, E63.9 - Nutritional deficiency, unspecified, M79.10 - Myalgia, unspecified site, R41.89 - Other symptoms and signs involving cognitive functions and awareness, T73.0XXA - Starvation, initial encounter ANCA Vasculitides Today D64.9 - Anemia, unspecified, E63.9 - Nutritional deficiency, unspecified, M79.10 - Myalgia, unspecified site, R41.89 - Other symptoms and signs involving cognitive functions and awareness, T73.0XXA - Starvation, initial encounter Babesia IgG/IgM Today D64.9 - Anemia, unspecified, E63.9 - Nutritional deficiency, unspecified, M79.10 - Myalgia, unspecified site, R41.89 - Other symptoms and signs involving cognitive functions and awareness, T73.0XXA - Starvation, initial encounter Ehrlichia Anaplasma Ab Panel Today D64.9 - Anemia, unspecified, E63.9 - Nutritional deficiency, unspecified, M79.10 - Myalgia, unspecified site, R41.89 - Other symptoms and signs involving cognitive functions and awareness, T73.0XXA - Starvation, initial encounter Tryptase Today D64.9 - Anemia, unspecified, E63.9 - Nutritional deficiency, unspecified, M79.10 - Myalgia, unspecified site, R19.7 - Diarrhea, unspecified, R41.89 - Other symptoms and signs involving cognitive functions and awareness, T73.0XXA - Starvation, initial encounter Histamine Plasma Today D64.9 - Anemia, unspecified, E63.9 - Nutritional deficiency, unspecified, M79.10 - Myalgia, unspecified site, R41.89 - Other symptoms and signs involving cognitive functions and awareness, T73.0XXA - Starvation, initial encounter Hepatitis A,B,C Profile Today D64.9 - Anemia, unspecified, E63.9 - Nutritional deficiency, unspecified, M79.10 - Myalgia, unspecified site, R41.89 - Other symptoms and signs involving cognitive functions and awareness, T73.0XXA - Starvation, initial encounter Creatine Kinase Total Today D64.9 - Anemia, unspecified, E63.9 - Nutritional deficiency, unspecified, M79.10 - Myalgia, unspecified site, R41.89 - Other symptoms and signs involving cognitive functions and awareness, T73.0XXA - Starvation, initial encounter Ferritin Today D64.9 - Anemia, unspecified, E63.9 - Nutritional deficiency, unspecified, M79.10 - Myalgia, unspecified site, R41.89 - Other symptoms and signs involving cognitive functions and awareness, T73.0XXA - Starvation, initial encounter Zinc Today D64.9 - Anemia, unspecified, E63.9 - Nutritional deficiency, unspecified, M79.10 - Myalgia, unspecified site, R41.89 - Other symptoms and signs involving cognitive functions and awareness, T73.0XXA - Starvation, initial encounter Vitamin D 25-OH Total Today D64.9 - Anemia, unspecified, E63.9 - Nutritional deficiency, unspecified, M79.10 - Myalgia, unspecified site, R41.89 - Other symptoms and signs involving cognitive functions and awareness, T73.0XXA - Starvation, initial encounter Vitamin C Today D64.9 - Anemia, unspecified, E63.9 - Nutritional deficiency, unspecified, M79.10 - Myalgia, unspecified site, R41.89 - Other symptoms and signs involving cognitive functions and awareness, T73.0XXA - Starvation, initial encounter Vitamin B6 Today D64.9 - Anemia, unspecified, E63.9 - Nutritional deficiency, unspecified, M79.10 - Myalgia, unspecified site, R41.89 - Other symptoms and signs involving cognitive functions and awareness, T73.0XXA - Starvation, initial encounter Vitamin B3 (Niacin) Today D64.9 - Anemia, unspecified, E63.9 - Nutritional deficiency, unspecified, M79.10 - Myalgia, unspecified site, R41.89 - Other symptoms and signs involving cognitive functions and awareness, T73.0XXA - Starvation, initial encounter Vitamin A Today D64.9 - Anemia, unspecified, E63.9 - Nutritional deficiency, unspecified, M79.10 - Myalgia, unspecified site, R41.89 - Other symptoms and signs involving cognitive functions and awareness, T73.0XXA - Starvation, initial encounter GI Panel Today D64.9 - Anemia, unspecified, E63.9 - Nutritional deficiency, unspecified, M79.10 - Myalgia, unspecified site, R19.7 - Diarrhea, unspecified, R41.89 - Other symptoms and signs involving cognitive functions and awareness, T73.0XXA - Starvation, initial encounter C Reactive Protein Today D64.9 - Anemia, unspecified, E63.9 - Nutritional deficiency, unspecified, M79.10 - Myalgia, unspecified site, R41.89 - Other symptoms and signs involving cognitive functions and awareness, T73.0XXA - Starvation, initial encounter IRON PROFILE Today D64.9 - Anemia, unspecified, E63.9 - Nutritional deficiency, unspecified, M79.10 - Myalgia, unspecified site, R41.89 - Other symptoms and signs involving cognitive functions and awareness, T73.0XXA - Starvation, initial encounter Transglutaminase Ab IgG Today D64.9 - Anemia, unspecified, E63.9 - Nutritional deficiency, unspecified, G89.29 - Other chronic pain, M79.10 - Myalgia, unspecified site, R10.33 - Periumbilical pain, R41.89 - Other symptoms and signs involving cognitive functions and awareness, T73.0XXA - Starvation, initial encounter Rast Allergen Today D64.9 - Anemia, unspecified, E63.9 - Nutritional deficiency, unspecified, M79.10 - Myalgia, unspecified site, R41.89 - Other symptoms and signs involving cognitive functions and awareness, T73.0XXA - Starvation, initial encounter, Z91.018 - Allergy to other foods Lyme IgG/IgM w/reflex to WB Today D64.9 - Anemia, unspecified, E63.9 - Nutritional deficiency, unspecified, M79.10 - Myalgia, unspecified site, R41.89 - Other symptoms and signs involving cognitive functions and awareness, T73.0XXA - Starvation, initial encounter Aldolase Today D64.9 - Anemia, unspecified, E63.9 - Nutritional deficiency, unspecified, M79.10 - Myalgia, unspecified site, R41.89 - Other symptoms and signs involving cognitive functions and awareness, T73.0XXA - Starvation, initial encounter Pancreatic Elastase-1 Today E63.9 - Nutritional deficiency, unspecified, T73.0XXA - Starvation, initial encounter Medications: New sodium,potassium,mag sulfates 17.5-3.13-1.6 gram (Suprep Bowel Prep Kit) DILUTE; drink 1/2 at 6-8 pm and half at 11 PM- 1AM 354 mL 0RF Coding Level of Care Code New Pt Level 4 (45332) Diagnoses Brain fog R41.89 Mild anemia D64.9 Nutrition deficiency due to insufficient food E63.9; T73.0XXA
== END 2024-05-29 12:41 | disposition home or self-care (01) ==
PROVIDERS: PCP Family Medicine; Visit Provider Internal Medicine Gastroenterology
DX: R41.89 Other symptoms and signs involving cognitive functions and awareness (principal); D64.9 Anemia, unspecified; E63.9 Nutritional deficiency, unspecified; T73.0XXA Starvation, initial encounter
CPT/HCPCS: 99204

== ENCOUNTER 2024-05-29 10:40 | Outpatient (REF) | payer MEDICARE, SELFPAY | END 2024-05-29 10:41 | disposition home or self-care (01) | LOC: HO.LAB 10:40 | PROVIDERS: PCP Family Medicine; Visit Provider Internal Medicine Gastroenterology | DX: K51.50 Left sided colitis without complications (principal); D64.9 Anemia, unspecified; E63.9 Nutritional deficiency, unspecified; M79.10 Myalgia, unspecified site; R41.89 Other symptoms and signs involving cognitive functions and awareness; T73.0XXA Starvation, initial encounter; T78.1XXA Other adverse food reactions, not elsewhere classified, initial encounter; X58.XXXA Exposure to other specified factors, initial encounter | CPT/HCPCS: 36415; 86003; 99202 ==

== ENCOUNTER 2024-06-05 12:41 | Outpatient (AMB) | payer MEDICARE, SELFPAY ==
--- NOTE | 2024-06-05 12:47 | A.OFFVIS_ITS ---
Vital Signs 06/05/24 12:48 Height 5 ft Weight 187 lb BMI 36.5 BP 118/70 Blood Pressure Location Rt brachial Position Sitting Respiration 16 Pulse 74 Pulse Source Pulse Oximeter Pulse Oximetry (%) 97 Oxygen Delivery Method Room Air Intake Visit Reasons: 3 mo f/u - Confirmed Intake Note: Pt presents to the office for a 3 month follow up for cervicalgia. [employer] Required: No Allergies No Known Allergies Allergy (Verified 06/05/24 12:47) HPI Comments Details: 74y/o right handed female comes for followup. SHe saw ENT- removed wax from both her ears and she is feeling better since then she is sleeping better. Neck pain is better she is scheduled for vestibular therapy Home sleep test was c/w mild sleep apnea- she is waiting for CPAP. Last visit- Her main issues are chronic dizziness, feeling foggy, difficulty falling asleep, light sensitivity, chronic fatigue , neck pain etc. she also reports pressure points through out the body. she was fine until 1 year ago - she had a bout vertigo ( spinning sensation) , she did some exercises which helped when turns to left but still has dizziness when she turns to right . she feels like she is not right in space. she denies double vision. she also has chronic tinnitus which worsened in the past 1 year.she denies headaches but has light sensitivity . she started noticing neck tightness and discomfort 1 month ago and it radiates to the back of skull and neck and she has a sensitive spot . she denies depression or anxiety. ABout 6 months ago she started noticing points in her body that are painful and she calls them pressure points/ Ifs he moves her head quickly she feels like she is losing her vision briefly. she has trouble falling asleep and staying asleep and has daytime fatigue. 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 No head injuries. [facility] Medical History Obstructive sleep apnea hypopnea, mild Insomnia Hypersomnia Vertigo Surgical History Hx of colonoscopy Hx of cholecystectomy History of hip replacement History of colon resection Social History Housing: Apartment Patient Tobacco Use Status: Former Tobacco user e-Cigarette/Vaping Use: Never Used Second Hand Smoke Exposure: No service: No Current occupational status: retired Current occupational exposures/hazards: No Cognitive needs: No Hearing needs: No Vision needs: Yes Physical Exam Vital Signs: Last Vital Signs Pulse 74 06/05/24 12:48 Resp 16 06/05/24 12:48 BP 118/70 06/05/24 12:48 Pulse Ox 97 06/05/24 12:48 Oxygen Delivery Method Room Air 06/05/24 12:48 BMI result Body Mass Index 36.5 Const General: cooperative, healthy appearing and comfortable Nutritional Appearance: overweight Orientation/consciousness: patient oriented x3 Limitations: no limitations HEENT Other: neck tightness- left levator and splenius tenderness mild restricted range of motion Eyes Pupils: Equal, round and reactive pupils present Neuro General: patient oriented x3, gait normal, tone normal, moves all extremities and no focal motor deficits Cranial nerves: Yes Facial sensation intact/muscles of mastication intact, Yes Equal, round and reactive pupils present, Yes Bilaterally intact EOM present, Yes Nystagmus not present, Yes Normal facial strength present, Yes Midline tongue present, Yes Symmetric palate elevation present and Yes Ability to bilaterally elevate shoulders present Cognition (Neuro): normal cognition Gait exam (Neuro): Normal gait present Motor exam (neuro): 5/5 motor strength present throughout and Normal motor mus cass tone present throughout Coordination: [id number] test normal Assessment & Plan Assessment & Plan (1) Vertigo: Comment: chronis with tinnitus / menieres ?vestibular dysfunction? vestibular migraine Code(s): R42 - Dizziness and giddiness Category: Medical (2) Obstructive sleep apnea hypopnea, mild: Code(s): G47.33 - Obstructive sleep apnea (adult) (pediatric) Category: Medical (3) Insomnia: Code(s): G47.00 - Insomnia, unspecified Category: Medical (4) Cervicalgia: Comment: ? cervical dystonia related to arthritis Code(s): M54.2 - Cervicalgia Category: Medical Plan Home sleep study c/w mild sleep apnea MRI Brain - to r/o brainstem lesions Continue gabapentin 100mg 1-3 caps qhs for neck pain\ vestibular therapy- she is scheduled Coding Level of Care Code Est Pt Level 4 (87601) Diagnoses Vertigo R42 Obstructive sleep apnea hypopnea, mild G47.33 Insomnia G47.00 Cervicalgia M54.2
[2024-06-05 12:48] VITALS: BP 118/70; PULSE 74; RESP 16; O2SAT 97; BMI 36.5
== END 2024-06-05 13:37 | disposition home or self-care (01) ==
PROVIDERS: PCP Family Medicine; Visit Provider Psychiatry & Neurology Neurology
DX: R42 Dizziness and giddiness (principal); G47.33 Obstructive sleep apnea (adult) (pediatric); G47.00 Insomnia, unspecified; M54.2 Cervicalgia
CPT/HCPCS: 99214

== ENCOUNTER → 2024-06-05 12:41 | Outpatient (BNVA) | payer MEDICARE, SELFPAY | PROVIDERS: PCP Family Medicine; Visit Provider Psychiatry & Neurology Neurology | DX: G47.33 Obstructive sleep apnea (adult) (pediatric) (principal); G47.00 Insomnia, unspecified; R42 Dizziness and giddiness; M54.2 Cervicalgia | CPT/HCPCS: 99212 ==

== ENCOUNTER 2024-06-23 10:27 | Outpatient (REF) | payer MEDICARE, SELFPAY ==
[2024-06-23 11:46] LABS: MANUAL DIFF FLAG NO
[2024-06-23 12:10] LABS: Basophils Percent Auto 0.5 % (0-2); Eosinophils Absolute Auto 0.1 X10*3/uL (0.0-0.4); Eosinophils Percent Auto 1.5 % (0-4); Hematocrit 31.1 % (37.0-47.0); Hemoglobin 10.5 g/dl (12.0-16.0); Imm Gran Abs Auto 0.06 X10*3/uL (0.00-0.03); Imm Gran Pct Auto 0.8 % (0.0-0.4); Lymphocytes Absolute Auto 1.2 X10*3/uL (1.2-4.9); Mean Corpuscular HGB Conc 33.8 g/dl (31.0-35.0); Mean Corpuscular Hemoglobin 32.3 pg (27.0-33.0); Mean Corpuscular Volume 95.7 fL (80.0-98.0); Mean Platelet Volume 9.6 fL (9.4-12.3); Monocytes Absolute Auto 0.5 X10*3/uL (0.1-1.2); Monocytes Percent Auto 6.3 % (2-11); Neutrophils Absolute Auto 5.4 x10*3/uL (2.0-8.3); Neutrophils Percent Auto 73.9 % (45-73); Platelet Count 277 X10*3/uL (160-400); Red Blood Count 3.25 X10*6/uL (4.20-5.50); Red Cell Distribution Width 11.8 % (11.0-16.0); White Blood Count 7.3 X10*3/uL (4.8-10.8)
[2024-06-23 12:36] LABS: Alanine Aminotransferase 13 U/L (0-31); Albumin Level 4.1 g/dL (3.5-5.0); Alkaline Phosphatase 87 U/L (39-117); Anion Gap 11 (12-20); Aspartate Amino Transferase 15 U/L (5-31); Bilirubin Total 0.6 mg/dL (0.0-1.0); Blood Urea Nitrogen 23 mg/dL (9-16); C Reactive Protein 0.18 mg/dL (< or = 0.50); Calcium 9.7 mg/dL (8.4-10.2); Carbon Dioxide 24 mmol/L (22-29); Chloride 106 mmol/L (96-108); Cholesterol 162 mg/dL (<200); Estimated Glomerular Filt Rate 55; Glucose Fasting 123 mg/dL (60-99); HDL Cholesterol 67 mg/dL (>40); Iron 104 mcg/dL (30-160); LDL Cholesterol Calculated 80 mg/dL (<100); Percent Iron Saturation 37 % (15-50); Potassium 4.1 mmol/L (3.3-5.1); Sodium 137 mmol/L (135-145); Total Iron Binding Capacity 278 mcg/dL (228-428); Triglycerides 77 mg/dL (<150); Unsaturated Iron Binding 174 ug/dL
[2024-06-26 21:44] LABS: Lyme Abs Screen <0.90 index
== END 2024-06-23 10:28 | disposition home or self-care (01) ==
LOC: HO.WFDLDS 10:27
PROVIDERS: Referring Provider Internal Medicine Gastroenterology; Visit Provider Family Medicine
DX: Z00.00 Encounter for general adult medical examination without abnormal findings (principal); T73.0XXA Starvation, initial encounter; E63.9 Nutritional deficiency, unspecified; R41.89 Other symptoms and signs involving cognitive functions and awareness; M79.10 Myalgia, unspecified site; D64.9 Anemia, unspecified
CPT/HCPCS: 36415; 80053; 80061; 82550; 83540; 85025; 86140; 86617; 86618; 86704; 86706; 86709; 87340

== ENCOUNTER 2024-07-31 09:33 | Outpatient (AMB) | payer MEDICARE, SELFPAY ==
--- NOTE | 2024-07-31 09:50 | A.OFFPC_ITS ---
Vital Signs 07/31/24 09:52 07/31/24 10:35 Height 5 ft Weight 175 lb 4 oz BMI 34.2 BP 144/64 H 128/82 Blood Pressure Location Rt brachial Lt brachial Position Sitting Respiration 14 Pulse 71 Pulse Source Pulse Oximeter Temp 97.2 F Temp Source Temporal Artery Scan Pulse Oximetry (%) 99 Oxygen Delivery Method Room Air Intake Visit Reasons: HTN/DM/Hyperlipidemia Intake Note: f/u DM ,HTN Allergies No Known Allergies Allergy (Verified 07/31/24 09:50) Medication List - Last Reconciled 07/31/24 by Sandeep Hitchcock MD atorvastatin 20 mg PO BEDTIME 90 days blood pressure test kit-large check bp daily and as needed blood sugar diagnostic ([employer] Ultra Test strips) To Test Blood Sugar Once a day, As directed, 90 days blood-glucose meter ([employer] Ultra2 Meter) To test Blood sugar As directed, 999 days cholecalciferol (vitamin D3) 25 mcg PO DAILY 90 days gabapentin 1-3 caps orally bedtime; ibuprofen 600 mg PO TID irbesartan 150 mg PO DAILY 90 days lancets (uMentioned UltraSoft 2 Lancet) Test Blood sugar once Daily as directed, 90 days latanoprost 0.005% 1 drp ophthalmic (eye) QPM magnesium oxide 500 mg PO DAILY melatonin 5 mg PO BEDTIME PRN 3 months sitagliptin phosphate (Januvia) 100 mg PO DAILY timolol 0.5% 1 drp ophthalmic (eye) DAILY Tobacco use date assessed: 01/31/24 Dental Screening Dental Screen Date: 11/01/23 HPI HTN/DM/Hyperlipidemia HPI Details 74 y/o female presents to f/u hypertensi on, diabetes, HLD and chronic conditions. Visual field defect and I had referred her to neurology. Also checked carotid Dopplers which were negative. Had sent her for vestibular rehab for vertigo. Notes vestibular rehab has helped with vertigo. Had seen neurology 06/05/24. Had ordered a home sleep study, brain MRI. Last A1c 04/21/24 6.3%. A1c today 07/31/24 is 6.0%. She is on Januvia 100mg. Blood pressure today 144/64, 71p. She is on irbesartan 150mg daily. Labs drawn 06/23/24. Reviewed labs with pt. Mild anemia. Triglycerides 77. TC 162. LDL 80. HDL 67. She is on artovastatin 20mg daily. HPI Comments History of Present Illness Details Documentation assistance for Sandeep Hitchcock MD, was provided by Mohsen Moyer, Technical Spec on 07/31/2024 at 10:17 AM RAY. I, Dr. Hitchcock, have read, observed, and verified documentation. PFSH Medical History Obstructive sleep apnea hypopnea, mild Insomnia Hypersomnia Vertigo Surgical History Hx of colonoscopy Hx of cholecystectomy History of hip replacement History of colon resection Social History Housing: Apartment Patient Tobacco Use Status: Former Tobacco user e-Cigarette/Vaping Use: Never Used Second Hand Smoke Exposure: No service: No Current occupational status: retired Current occupational exposures/hazards: No Cognitive needs: No Hearing needs: No Vision needs: Yes Questionnaire PHQ-9 Over the last 2 weeks, how often have you been bothered by any of the following problems? 1. Little interest or pleasure in doing things: not at all 2. Feeling down, depressed, or hopeless: not at all 3. Trouble falling or staying asleep, or sleeping too much: not at all 4. Feeling tired or having little energy: several days 5. Poor appetite or overeating: not at all 6. Feeling bad about yourself - or that you are a failure or have let yourself or your family down: not at all 7. Trouble concentrating on things, such as reading the newspaper or watching television: several days 8. Moving or speaking so slowly that other people could have noticed. Or the opposite - being so fidgety or restless that you have been moving around a lot more than usual: not at all 9. Thoughts that you would be better off or of hurting yourself in some way: not at all Total score: 2 Source: Developed by Drs. Robbin Ragsdale, Shruthi Nair, Davey Petty and colleagues, with an educational snehal from [employer]. Thrive Questionnaire Date Thrive assessed: 12/07/22 I am a: Patient What is your living situation today?: I have a steady place to live Within the past 12 months, did the food you bought not last and you didn't have the money to get more?: Never true Within the past 12 months, did you worry whether your food would run out before you got money to buy more?: Never true Do you have trouble paying for medicines?: No Do you have trouble getting transportation to medical appointments?: No Do you have trouble paying your heating and electricity bill?: No Do you have trouble taking care of your child, family member or friend?: No Do you have trouble with day-to-day activities such as bathing, preparing meals, shopping, managing finances, etc.?: No Are you currently unemployed and looking for a job?: No Are you interested in more education?: No Please select the resources that you would like help with: None Currently or been in a relationship where the following occur: No concerns reported THRIVE Score: 0 AUDIT C Alcohol Use Questionnaire (AUDIT-C) 1. How often do you have a drink containing alcohol?: 2-3 times a week Total Score: 3 JESSICA-7 AMB Questionnaire JESSICA-7 Date JESSICA - 7 assessed: 11/01/23 Feeling nervous, anxious, or on edge: 0 = Not at all Not being able to stop or control worryin = Not at all Worrying too much about different things: 0 = Not at all Trouble relaxin = Not at all Being so restless that it is hard to sit still: 0 = Not at all Becoming easily annoyed or irritable: 0 = Not at all Feeling afraid as if something awful might happen: 0 = Not at all Total JESSICA-7 score (0-4 normal; 5-9 mild; 10-14 moderate; 15-21 severe): 0 Source: Developed by Drs. Robbin Ragsdale, Shruthi Nair, Davey Petty and colleagues, with an educational snehal from [employer]. Review of Systems Const Denies chills, Denies fatigue, Denies fever(s), Denies headache(s) and Denies weakness ENT Denies dizziness and Denies headache(s) Card Denies dyspnea Resp Denies cough, Denies dyspnea, Denies wheezing and Denies other (shortness of breath) Musc Denies numbness and Denies tingling Neuro Denies dizziness, Denies headache(s), Denies numbness, Denies tingling and Denies weakness Psych Denies anxiety and Denies depression Endo Denies fatigue Aller/Immun Denies wheezing Physical exam (Primary Care) Vital Signs: Last Vital Signs Temp 97.2 F 07/31/24 09:52 Pulse 71 07/31/24 09:52 Resp 14 07/31/24 09:52 BP 144/64 H 07/31/24 09:52 Pulse Ox 99 07/31/24 09:52 Oxygen Delivery Method Room Air 07/31/24 09:52 BMI result Body Mass Index 34.2 Tobacco/Smoking Status: Tobacco use Status Tobacco use date assessed 01/31/24 07/31/24 09:55 Patient Tobacco Use Status Former Tobacco user 07/31/24 09:55 e-Cigarette/Vaping Use Never Used 07/31/24 09:55 PHQ-9: PHQ-9 Score PHQ-9: Total score 2 07/31/24 10:15 Thrive Assessment: Date of Thrive Assessment Date Thrive assessed 12/07/22 07/31/24 09:55 Currently or been in a relationship where the following occur: No concerns reported Const General: well developed; No acute distress Nutritional Appearance: well nourished Orientation/consciousness: patient oriented x3 HENMT Head: Yes normocephalic and Yes atraumatic Eyes General: appearance normal, both eyes and all related structures Pupils: Equal, round and reactive pupils present EOM: EOMs intact bilaterally Resp Effort & Inspection: normal respiratory effort Auscultation: clear to auscultation bilaterally Cardio Rate: regular rate Rhythm: regular rhythm Heart sounds: S1 normal heart sound present, S2 normal heart sound present, no gallops, no murmurs and no rubs Neuro General: patient oriented x3 and gait normal Cranial nerves: Yes Equal, round and reactive pupils present Psych Affect: normal affect Results AMB Hemoglobin A1c AMB Hemoglobin A1c 6.0 % Last Edit by ANGIE Renee on 07/31/24 09:59 Results Reviewed Results Reviewed: Laboratory Last Values Hgb A1c (Clinic) 6.0 % (4.0-6.0) 07/31/24 09:58 Coding Level of Care Code Est Pt Level 4 (99765) Diagnoses Diabetes E11.9 Hypertension I10 Cervicalgia M54.2 Mild anemia D64.9 Hyperlipidemia E78.5 Vision changes H53.9 Vertigo R42 Assessment & Plan Assessment & Plan (1) Diabetes: Code(s): E11.9 - Type 2 diabetes mellitus without complications Category: Medical Plan: A1c?6.0%?is?good?control.??Goal?is?less?than?7.0% Continue?current?medication She?has?her?next?diabetic?eye?exam?scheduled (2) Hypertension: Code(s): I10 - Essential (primary) hypertension Category: Medical Plan: Blood?pressure?was?elevated?initially?but?well?controlled?with?relaxation.??Goal ?is?less?than?140/90 Continue?current?medication (3) Cervicalgia: Comment: ? 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 MRI?did?note?some?degenerative?changes?as?well. Continue?physical?therapy?and?continue?exercises?once?finished?with?physical?the rapy She?will?let?me?know?if?symptoms?worsen.??Could?consider?referral?to? ysiatry?for?injection?therapy?however?most?of?her?symptoms?seem?consistent?with? muscle/tendon?discomfort. (4) Mild anemia: Code(s): D64.9 - Anemia, unspecified Category: Medical Plan: Had?prior?polyp?resection.??Followed?by?Gastroenterology. Will?have?her?recheck?H&H?prior?to?next?visit (5) Hyperlipidemia: Code(s): E78.5 - Hyperlipidemia, unspecified Category: Medical Plan: Lipids?are?well?controlled?on?atorvastatin Continue?current?medication (6) Vision changes: Code(s): H53.9 - Unspecified visual disturbance Category: Medical Plan: Had?noted?visual?field?defect. Patient?saw?her?health information systems technician?and?she?has a?mild?cataract Follow-up?with?ophthalmology?as?recommended (7) Vertigo: Code(s): R42 - Dizziness and giddiness Category: Medical Plan: Much?improved?and?nearly?resolved?with?vestibular?rehab. Continue?vestibular?rehab?exercises. Follow-up?with?Neurology?as?recommend Orders: Orders Basic Metabolic Panel Fasting Today D64.9 - Anemia, unspecified Comprehensive [place]. Panel Fast 4 Months Z00.00 - Encounter for general adult medical examination without abnormal findings Complete Blood Count Auto Diff 4 Months Z00.00 - Encounter for general adult medical examination without abnormal findings Lipid Panel 4 Months Z00.00 - Encounter for general adult medical examination without abnormal findings Microalbumin, Random (w Creat) 4 Months I10 - Essential (primary) hypertension TSH reflex Free T4 4 Months Z00.00 - Encounter for general adult medical examination without abnormal findings AMB Hemoglobin A1c Today E11.9 - Type 2 diabetes mellitus without complications Complete Blood Count Auto Diff Today Z00.00 - Encounter for general adult medical examination without abnormal findings UA and rflx microscopic 4 Months Z00.00 - Encounter for general adult medical examination without abnormal findings
[2024-07-31 09:52] VITALS: BP 144/64; PULSE 71; RESP 14; TEMP 36.2; O2SAT 99; BMI 34.2
[2024-07-31 10:35] VITALS: BP 128/82
== END 2024-07-31 10:42 | disposition home or self-care (01) ==
PROVIDERS: PCP Family Medicine; Visit Provider Family Medicine
DX: E11.9 Type 2 diabetes mellitus without complications (principal); I10 Essential (primary) hypertension; M54.2 Cervicalgia; D64.9 Anemia, unspecified; E78.5 Hyperlipidemia, unspecified; H53.9 Unspecified visual disturbance; R42 Dizziness and giddiness

== ENCOUNTER → 2024-07-31 09:33 | Outpatient (BNVA) | payer MEDICARE, SELFPAY | PROVIDERS: PCP Family Medicine; Visit Provider Family Medicine | DX: E11.9 Type 2 diabetes mellitus without complications (principal); I10 Essential (primary) hypertension; M54.2 Cervicalgia; D64.9 Anemia, unspecified; E78.5 Hyperlipidemia, unspecified; H26.9 Unspecified cataract; R42 Dizziness and giddiness | CPT/HCPCS: 83036; 96127; 99212 ==

== ENCOUNTER 2024-09-26 08:56 | Day surgery (SDC) | payer MEDICARE, SELFPAY ==
[2024-09-22 14:45] VITALS: BMI 36.5
--- NOTE | 2024-09-25 10:10 | P.CONAN_ITS ---
Documented by User: Jeane Frederick NP 09/25/24 10:10 HPI - Anesthesia Eval Consult details Narrative: 74yo F for Upper Endoscopy and Colonoscopy Anesthesia Pre-Procedure Meds Is the patient on any of the following meds?: GLP1/DPP4 PMFSH Active Problems Active Problems: All Active Problems Anemia (Acute) Nutrition deficiency due to insufficient food (Acute) Myalgia (Acute) Ulcerative colitis (Acute) Hyperlipidemia (Acute) Diarrhea (Acute) Shoulder pain (Acute) Cervicalgia (Acute) Adult general medical exam (Acute) Screening for osteoporosis (Acute) Screening for colon cancer (Acute) Mild anemia (Acute) Dizziness (Acute) Brain fog (Acute) Vision changes (Acute) Vertigo (Acute) Laboratory exam ordered as part of routine general medical examination (Acute) Hypertension (Acute) Diabetes (Acute) Screening for breast cancer (Acute) Screening cholesterol level (Acute) Primary generalized (osteo)arthritis (Acute) Ankle pain, right (Acute) Viral upper respiratory illness (Acute) Unintended weight gain (Acute) BMI 35.0-35.9,adult (Acute) HTN, goal below 130/80 (Acute) Vitamin D deficiency (Acute) Absolute glaucoma, bilateral (Acute) Osteoarthritis involving joints of both upper arms (Acute) Well controlled diabetes mellitus (Acute) Obstructive sleep apnea hypopnea, mild (Acute) Insomnia (Acute) Hypersomnia (Acute) Vertigo (Acute) Past Medical History Medical History Myalgia Diabetes HTN (hypertension) Anemia Ulcerative colitis Osteoarthritis Obstructive sleep apnea hypopnea, mild Insomnia Hypersomnia Vertigo Surgical History Surgical History Hx of colonoscopy Hx of cholecystectomy History of hip replacement History of colon resection Social History Social History Housing: Apartment Patient Tobacco Use Status: Former Tobacco user e-Cigarette/Vaping Use: Never Used Second Hand Smoke Exposure: No service: No Current occupational status: retired Current occupational exposures/hazards: No Cognitive needs: No Hearing needs: No Vision needs: Yes Meds Allergies Allergy/AdvReac Type Severity Reaction Status Date / Time No Known Allergies Allergy Verified 07/31/24 09:50 Home Medications ?Medication ?Instructions ?Recorded ?Confirmed ?Last Taken ?Type latanoprost 0.005 % eye drops 1 drp ophthalmic (eye) QPM 03/25/22 09/22/24 09/26/24 History timolol 0.5 % eye drops 1 drp ophthalmic (eye) DAILY 03/25/22 09/22/24 09/26/24 History Exam Height,Weight and Vital Signs: Height 5 ft Weight 84.822 kg Assessment and Plan Assessment Anesthesia Assessment: Chart Reviewed Documented by User: Cecille Murray MD 09/26/24 11:44 HPI - Anesthesia Eval Anesthesia Pre-Procedure Meds Is the patient on any of the following meds?: GLP1/DPP4 (Last dose of shanta gliptin 09/23/24) PMFSH Active Problems Active Problems: All Active Problems Anemia (Acute) Nutrition deficiency due to insufficient food (Acute) Myalgia (Acute) Ulcerative colitis (Acute) Hyperlipidemia (Acute) Diarrhea (Acute) Shoulder pain (Acute) Cervicalgia (Acute) Adult general medical exam (Acute) Screening for osteoporosis (Acute) Screening for colon cancer (Acute) Mild anemia (Acute) Dizziness (Acute) Brain fog (Acute) Vision changes (Acute) Vertigo (Acute) Laboratory exam ordered as part of routine general medical examination (Acute) Hypertension (Acute) Diabetes (Acute) Screening for breast cancer (Acute) Screening cholesterol level (Acute) Primary generalized (osteo)arthritis (Acute) Ankle pain, right (Acute) Viral upper respiratory illness (Acute) Unintended weight gain (Acute) BMI 35.0-35.9,adult (Acute) HTN, goal below 130/80 (Acute) Vitamin D deficiency (Acute) Absolute glaucoma, bilateral (Acute) Osteoarthritis involving joints of both upper arms (Acute) Well controlled diabetes mellitus (Acute) Obstructive sleep apnea hypopnea, mild (Acute) Insomnia (Acute)- not using Hypersomnia (Acute) Vertigo (Acute) Past Medical History Medical History Myalgia Diabetes HTN (hypertension) Anemia Ulcerative colitis Osteoarthritis Obstructive sleep apnea hypopnea, mild Insomnia Hypersomnia Vertigo Family History Family history of problems with anesthesia: No Surgical History Surgical History Hx of colonoscopy Hx of cholecystectomy History of hip replacement History of colon resection History of Problems with Anesthesia: No Social History Social History Housing: Apartment Patient Tobacco Use Status: Former Tobacco user e-Cigarette/Vaping Use: Never Used Second Hand Smoke Exposure: No service: No Current occupational status: retired Current occupational exposures/hazards: No Cognitive needs: No Hearing needs: No Vision needs: Yes Meds Allergies Allergy/AdvReac Type Severity Reaction Status Date / Time No Known Allergies Allergy Verified 07/31/24 09:50 Home Medications ?Medication ?Instructions ?Recorded ?Confirmed ?Last Taken ?Type latanoprost 0.005 % eye drops 1 drp ophthalmic (eye) QPM 03/25/22 09/22/24 09/26/24 History timolol 0.5 % eye drops 1 drp ophthalmic (eye) DAILY 03/25/22 09/22/24 09/26/24 History Exam Height,Weight and Vital Signs: Height 5 ft Weight 84.822 kg Vital Signs Temp Pulse Resp BP Pulse Ox O2 Del Method 09/26/24 09:55 96.9 F 80 20 168/69 H 96 Room Air Pertinent Lab Results Pertinent Lab Results: Lab Results 09/26/24 Range/Units 10:06 POC Glucose 147 H (60-115) mg/dL Airway Mallampati Class: II TM Dist: >3cm Neck ROM: Full Loose/Missing/Broken Teeth: Yes (Some teeth missing back. Denies broken or loose teeth) Heart: RRR Lungs: CTAB Assessment and Plan Assessment Anesthesia Assessment: Anesthesia Plan Discussed and Chart Reviewed Final Anesthetic Review Family History of Problems with Anesthesia: No History of Problems with Anesthesia: No NPO: Yes ASA Class: III Final Preanesthetic Review: No Changes in Pt Med Stat, Meds/Allgs Chart Reviewed, Consent Obtained/Reviewed and Anes Risks/Benef Reviewed Patient Risk: Intermediate Procedure Risk: Low Assessment/Block/Sedation in SS: Assess/Block/Sedation-SS Anesthetic Plan Anesthetic Plan: TIVA Disposition: Standard PACU
[2024-09-26 09:55] VITALS: BP 168/69; PULSE 80; RESP 20; TEMP 36.1; O2SAT 96
[2024-09-26 10:12] LABS: Glucose, Whole Blood 147 mg/dL (60-115)
[2024-09-26] MEDS: Lactated Ringers 1,000 ML 100 ML IVCONT (10:26)
--- NOTE | 2024-09-26 10:33 | MHC.SHP ---
Pre-Procedural Eval Section A - 24 Hr Update-Section A only Date of Service: 09/26/24 Section B - Complete if H&P > 30 days Chief Complaint: Anemia, unspecified Relevant Family History (Specify if Yes): No Relevant Social History: None Present Medications: see Short Stay Collaborative assessment Medical History: Significant History (Myalgia Diabetes HTN (hypertension) Anemia Ulcerative colitis Osteoarthritis Obstructive sleep apnea hypopnea, mild Insomnia Hypersomnia Vertigo) History of Previous Operations: Relevant previous surgery/procedure and date(s) (Hx of colonoscopy Hx of cholecystectomy History of hip replacement History of colon resection) Allergies: Allergies Allergy/AdvReac Type Severity Reaction Status Date / Time No Known Allergies Allergy Verified 07/31/24 09:50 Review of Systems Sugical H&P ROS: Negative: Constitution, Cardiovascular, Respiratory, Neurological, Psychiatric, Hem-Onc, Allergic/Immunologic, Gastrointestinal, Genitourinary, Musculoskeletal, Integumentary, Endocrine and Eyes/Ears/Nose/Throat Exam Surgical H&P Exam: Normal: HEENT, Normal: Heart, Normal: Lungs, Normal: Extremities, Normal: Abdomen, Normal: Skin and Normal: Neurological Plan Diagnosis/Plan: Unchanged I have reviewed the history and physical and performed a pertinent physical examination on my patient. No changes have occurred unless specified. Time Spent With Patient Time: Total time managing care of this patient today ____ minutes.
--- NOTE | 2024-09-26 11:35 | P.OPN-COLO_ITS ---
Colonoscopy Operative Note Operative Note Date of Service: 09/26/24 Narrative: Operative Information Procedure Description: EGD, Colonoscopy Indication: abn bowel habit Anesthesia: MAC FLEXIBLE TRANSORAL UPPER GASTROINTESTINAL ENDOSCOPY AND COLONOSCOPY PROCEDURE NOTE UPPER ENDOSCOPY Consent: Indications for the procedure and potential complications of bleeding, perforation, reaction to medications and missed diagnosis were discussed with the patient and informed consent was obtained. Instrument: Olympus GIF H 190 J mid size upper endoscope Monitoring: Vital signs and clinical assessment, continuous EKG monitoring, Pulse oximetry, Carbon Dioxide monitoring and blood pressure monitoring were done throughout the procedure. Procedure: The patient was placed in the left lateral decubitis position and pre-procedure medications were administered and a bite block was placed. The endoscope was inserted into the mouth and advanced under direct vision to the third part of duodenum. A careful inspection was made as the upper endoscope was withdrawn including a retroflexed examination of the proximal stomach; Findings and interventions are described below. Findings: Larynx:normal Esophagus: GE junction at 34 cm, diaphragm hiatus at 36 cm, with esophagitis at GEJ, bx taken also from distal esophagus -inlet patch noted Stomach: Patchy erosions and erythema . Biopsies were obtained. Grade 2 flap valve on retroflexed examination of the cardia. Duodenum: Mild bulbar duodenitis Intervention: Biopsies as noted above, COLONOSCOPY Instrument: Olympus variable stiffness pediatric scope 190L Colonoscopy Monitoring: Vital signs and clinical assessment, continuous EKG monitoring, Pulse oximetry, Carbon Dioxide monitoring and blood pressure monitoring were done throughout the procedure. Colon withdrawal time was 8 minutes. Procedure: The patient was placed in the left lateral decubitis position and pre-procedure medications were administered. After a digital rectal examination of the ano-rectum, the video colonoscope was inserted into the rectum and advanced through the colon to the cecum/TI. The colonoscope was slowly withdrawn in a retrograde panoramic fashion and the colon mucosa was carefully examined including a retroflexed view of the rectum. Findings and interventions are described below. Procedure Difficulty:moderate Findings: Terminal Ileum-normal Cecum:normal Ascending Colon: 7-8 mm sessile polyp removed with cold snare, mild diverticulosis Transverse Colon -normal Descending Colon: colo colonic anastomosis noted Sigmoid Colon: mild diverticulosis Rectum: Retroflexion with small internal hemorrhoids, grade I Anorectum - normal Colon preparation: [place] Bowel Preparation Scale Right colon; 1-2 Transverse colon: 2 Left colon; 2 (0 = Unprepared colon segment with mucosa not seen due to solid stool that cannot be cleared. 1 = Portion of mucosa of the colon segment seen, but other areas of the colon segment not well seen due to staining, residual stool and/or opaque liquid. 2 = Minor amount of residual staining, small fragments of stool and/or opaque liquid, but mucosa of colon segment seen well. 3 = Entire mucosa of colon segment seen well with no residual staining, small fragments of stool or opaque liquid) Impression and Post Procedure Diagnosis: Endoscopy Findings: erosive gastritis esophagitis duodenitis hiatal hernia inlet patch Colonoscopy Findings: diverticulosis colon polyp internal hemorrhoids Plan: Await Pathology results Repeat Colonoscopy in 1 year due to right sided prep being fair or earlier if clinically indicated High fiber diet leaflet avoid straining at stool, epsom salts and sitz bath, anusol supps or cream commence low dose PPI Above findings were reviewed with the patient and relevant handouts were provided if indicated.
[2024-09-26 11:41] VITALS: BP 105/53; PULSE 82; RESP 18; TEMP 36.9; O2SAT 100
[2024-09-26 11:56] VITALS: BP 133/54; PULSE 81; RESP 18; TEMP 36.4; O2SAT 100
== END 2024-09-26 13:33 | disposition home or self-care (01) ==
PROVIDERS: PCP Family Medicine; Visit Provider Internal Medicine Gastroenterology
PROC: (CPT 45385; principal; 2024-09-26 11:30)
DX: D12.2 Benign neoplasm of ascending colon (principal); K63.89 Other specified diseases of intestine; K57.30 Diverticulosis of large intestine without perforation or abscess without bleeding; K64.0 First degree hemorrhoids; R19.4 Change in bowel habit; D64.9 Anemia, unspecified; K29.80 Duodenitis without bleeding; K20.90 Esophagitis, unspecified without bleeding; K51.90 Ulcerative colitis, unspecified, without complications; E11.9 Type 2 diabetes mellitus without complications; I10 Essential (primary) hypertension; G47.33 Obstructive sleep apnea (adult) (pediatric); E55.9 Vitamin D deficiency, unspecified; E63.9 Nutritional deficiency, unspecified; R41.89 Other symptoms and signs involving cognitive functions and awareness; Z90.49 Acquired absence of other specified parts of digestive tract; Z87.891 Personal history of nicotine dependence; Z79.02 Long term (current) use of antithrombotics/antiplatelets; Z79.899 Other long term (current) drug therapy
CPT/HCPCS: 45385; 43239; 82947; 88305; 88313; 88342; J2003; J2704

== ENCOUNTER → 2024-09-26 08:56 | Outpatient (BNV) | payer MEDICARE, SELFPAY | PROVIDERS: PCP Family Medicine; Visit Provider Internal Medicine Gastroenterology | DX: R19.4 Change in bowel habit (principal); D12.2 Benign neoplasm of ascending colon; K64.0 First degree hemorrhoids; K57.90 Diverticulosis of intestine, part unspecified, without perforation or abscess without bleeding; K29.70 Gastritis, unspecified, without bleeding; K20.90 Esophagitis, unspecified without bleeding; K29.80 Duodenitis without bleeding | CPT/HCPCS: 43239; 45385 ==

== ENCOUNTER 2024-11-01 09:10 | Outpatient (AMB) | payer MEDICARE, SELFPAY ==
--- NOTE | 2024-11-01 09:29 | A.OFFPC_ITS ---
Vital Signs 11/01/24 09:41 Height 5 ft Weight 174 lb 2 oz BMI 34.0 BP 130/76 Blood Pressure Location Lt brachial Position Sitting Respiration 14 Pulse 69 Pulse Source Pulse Oximeter Temp 97.5 F Temp Source Oral Pulse Oximetry (%) 98 Oxygen Delivery Method Room Air Intake Visit Reasons: f/u diabetes, hypertension, chronic conditions Intake Note: f/u dm and htn Allergies No Known Allergies Allergy (Verified 11/01/24 09:40) Medication List - Last Reconciled 11/01/24 by Sandeep Hitchcock MD atorvastatin 20 mg PO BEDTIME 90 days cholecalciferol (vitamin D3) 25 mcg PO DAILY 90 days gabapentin 1-3 caps orally bedtime; irbesartan 150 mg PO DAILY 90 days latanoprost 0.005% 1 drp ophthalmic (eye) QPM magnesium oxide 500 mg PO DAILY melatonin 5 mg PO BEDTIME PRN 3 months pantoprazole 20 mg PO DAILY sitagliptin phosphate (Januvia) 100 mg PO DAILY timolol 0.5% 1 drp ophthalmic (eye) DAILY Tobacco use date assessed: 01/31/24 Dental Screening Dental Screen Date: 11/01/23 [facility] Medical History Myalgia Diabetes HTN (hypertension) Anemia Ulcerative colitis Osteoarthritis Obstructive sleep apnea hypopnea, mild Insomnia Hypersomnia Vertigo Surgical History Hx of colonoscopy Hx of cholecystectomy History of hip replacement History of colon resection Social History Housing: Apartment Patient Tobacco Use Status: Former Tobacco user e-Cigarette/Vaping Use: Never Used Second Hand Smoke Exposure: No service: No Current occupational status: retired Current occupational exposures/hazards: No Cognitive needs: No Hearing needs: No Vision needs: Yes Questionnaire PHQ-9 Over the last 2 weeks, how often have you been bothered by any of the following problems? 1. Little interest or pleasure in doing things: not at all 2. Feeling down, depressed, or hopeless: not at all 3. Trouble falling or staying asleep, or sleeping too much: not at all 4. Feeling tired or having little energy: several days 5. Poor appetite or overeating: not at all 6. Feeling bad about yourself - or that you are a failure or have let yourself or your family down: not at all 7. Trouble concentrating on things, such as reading the newspaper or watching television: not at all 8. Moving or speaking so slowly that other people could have noticed. Or the opposite - being so fidgety or restless that you have been moving around a lot more than usual: not at all 9. Thoughts that you would be better off or of hurting yourself in some way: not at all Total score: 1 Depression Screening Interpretation: Negative Depression Screening Done: Yes Source: Developed by Drs. Robbin Ragsdale, Shruthi Nair, Davey Petty and colleagues, with an educational snehal from [employer]. Thrive Questionnaire Date Thrive assessed: 12/07/22 I am a: Patient What is your living situation today?: I have a steady place to live Within the past 12 months, did the food you bought not last and you didn't have the money to get more?: Never true Within the past 12 months, did you worry whether your food would run out before you got money to buy more?: Never true Do you have trouble paying for medicines?: No Do you have trouble getting transportation to medical appointments?: No Do you have trouble paying your heating and electricity bill?: No Do you have trouble taking care of your child, family member or friend?: I choose not to answer this question Do you have trouble with day-to-day activities such as bathing, preparing meals, shopping, managing finances, etc.?: No Are you currently unemployed and looking for a job?: No Are you interested in more education?: No Please select the resources that you would like help with: None Currently or been in a relationship where the following occur: No concerns reported THRIVE Score: 0 AUDIT C Alcohol Use Questionnaire (AUDIT-C) 1. How often do you have a drink containing alcohol?: 2-3 times a week 2. How many drinks containing alcohol do you have on a typical day when you are drinking?: 1 or 2 3. How often do you have six or more drinks on one occasion?: Never Total Score: 3 JESSICA-7 AMB Questionnaire JESSICA-7 Date JESSICA - 7 assessed: 11/01/23 Feeling nervous, anxious, or on edge: 0 = Not at all Not being able to stop or control worryin = Not at all Worrying too much about different things: 0 = Not at all Trouble relaxin = Not at all Being so restless that it is hard to sit still: 0 = Not at all Becoming easily annoyed or irritable: 1 = Several days Feeling afraid as if something awful might happen: 0 = Not at all Total JESSICA-7 score (0-4 normal; 5-9 mild; 10-14 moderate; 15-21 severe): 1 Source: Developed by Drs. Robbin Ragsdale, Shruthi Nair, Davey Petty and colleagues, with an educational snehal from [employer]. Physical exam (Primary Care) Vital Signs: Last Vital Signs Temp 97.5 F 11/01/24 09:41 Pulse 69 11/01/24 09:41 Resp 14 11/01/24 09:41 BP 130/76 11/01/24 09:41 Pulse Ox 98 11/01/24 09:41 Oxygen Delivery Method Room Air 11/01/24 09:41 BMI result Body Mass Index 34.0 Tobacco/Smoking Status: Tobacco use Status Tobacco use date assessed 01/31/24 11/01/24 09:31 Patient Tobacco Use Status Former Tobacco user 11/01/24 09:31 e-Cigarette/Vaping Use Never Used 11/01/24 09:31 PHQ-9: PHQ-9 Score PHQ-9: Total score 1 11/01/24 09:31 Depression Screening Interpretation: Negative Thrive Assessment: Date of Thrive Assessment Date Thrive assessed 12/07/22 11/01/24 09:31 Currently or been in a relationship where the following occur: No concerns reported Coding Level of Care Code Est Pt Level 4 (46247) Diagnoses Diabetes E11.9 Hypertension I10 Low TSH level R79.89 Assessment & Plan Assessment & Plan (1) Diabetes: Code(s): E11.9 - Type 2 diabetes mellitus without complications Category: Medical Plan: A1c?is?6.0%.??Well?controlled?and?stable.??Goal?is?less?than?7.0% Continue?current?medication Recent?eye?exam?in?August?showed?no?diabetic?retinopathy.??Up-to-date. Continue?diabetic?diet,?weight?loss?and?exercise (2) Hypertension: Code(s): I10 - Essential (primary) hypertension Category: Medical Plan: Blood?pressure?is?controlled.??Goal?is?less?than?140/90 Continue?current?medication (3) Low TSH level: Code(s): R79.89 - Other specified abnormal findings of blood chemistry Category: Medical Plan: TSH?was?slightly?below?normal?range?though?T4?was?within?normal?limits. Will?recheck?this?prior?to?next?visit Orders: Orders Basic Metabolic Panel Today I10 - Essential (primary) hypertension, Z00.00 - Encounter for general adult medical examination without abnormal findings Microalbumin, Random (w Creat) Today I10 - Essential (primary) hypertension TSH reflex Free T4 Today I10 - Essential (primary) hypertension, Z00.00 - Encounter for general adult medical examination without abnormal findings Medications: New Lactobacillus acidophilus 50 mmu cells PO TID 30 days 90 tabs 3RF
[2024-11-01 09:41] VITALS: BP 130/76; PULSE 69; RESP 14; TEMP 36.4; O2SAT 98; BMI 34.0
== END 2024-11-01 11:47 | disposition home or self-care (01) ==
PROVIDERS: PCP Family Medicine; Visit Provider Family Medicine
DX: E11.9 Type 2 diabetes mellitus without complications (principal); I10 Essential (primary) hypertension; R79.89 Other specified abnormal findings of blood chemistry

== ENCOUNTER → 2024-11-01 09:10 | Outpatient (BNVA) | payer MEDICARE, SELFPAY | PROVIDERS: PCP Family Medicine; Visit Provider Family Medicine | DX: E11.9 Type 2 diabetes mellitus without complications (principal); R79.89 Other specified abnormal findings of blood chemistry; I10 Essential (primary) hypertension | CPT/HCPCS: 83036; 99212 ==

== ENCOUNTER 2025-01-22 13:53 | Outpatient (AMB) | payer MEDICARE, SELFPAY ==
--- NOTE | 2025-01-22 13:55 | A.OFFVIS_ITS ---
Vital Signs 01/22/25 13:59 Height 5 ft Weight 165 lb BMI 32.2 BP 129/55 L Blood Pressure Location Lt brachial Position Sitting Pulse 84 Intake Visit Reasons: S/P Double; Dr. Montero Intake Note: Rajni presents in the office as a follow up to her EGD and COLO. CC: She states that her IBS is an issue and even though she was medication - she states she is 20% better. [facility] Required: No Allergies No Known Allergies Allergy (Verified 11/01/24 09:40) HPI HPI S/P Double; Dr. Montero: Details: 74 yr old f here for f/u RECAP She has had constant brain fog for months, told she has RENA and and waiting for a machine she had brain MRI which was nml she has a painful spot in the head she has projectile diarrhea for 8 months she can have some blood in stool she had partial colectomy for flat polyp 2011 she moved back from [place] 2 yrs ago and last colonoscopy 3 yr ago TESTS: carotid us-- nml MRI: no masses, or infarcts EGD?Colonoscopy: 10/03 Endoscopy Findings: erosive gastritis esophagitis duodenitis hiatal hernia inlet patch Colonoscopy Findings: diverticulosis colon polyp internal hemorrhoids BX: duodentiis, tubular adenoma, reflux changes -moderate chronic esophagitis INTERIM: post prandial diarrhea no nausea or vomiting appetite is good no dysphagia no GERD taking ibuprofen 600 mg daily EXAM: GENERAL: The patient is well developed and nontoxic. VITAL SIGNS:see workflow HEENT: Nonicteric sclerae, PERRLA, EOMI. Oropharynx clear. Moist mucous membranes. Conjunctivae appear well perfused. No thyroid mass. CHEST: Chest wall is nontender. HEART: Regular rate and rhythm without murmurs. LUNGS: Clear to auscultation bilaterally. ABDOMEN: Soft, positive bowel sounds, nontender, no organomegaly.no flank tenderness SKIN: No rash, no excessive bruising, petechiae, or purpura. NEUROLOGIC: Cranial nerves II-XII intact without motor/sensory deficit. Psych: normal affect A/P: 1/ Abn bowel habit, anemia, with hx of advanced polyp s/p resection, recent endoscopies with erosive gastritis, maybe contributing to her sx as well as nsaid use PLAN: 1/ increase ppi to 40 mg daily 2/ maybe trial of cholestyramine if above doesnt work 3/ repeat colo in 1 year 4/ stop nsaid can use tylenol or other analgesia PFSH Medical History Myalgia Diabetes HTN (hypertension) Anemia Ulcerative colitis Osteoarthritis Obstructive sleep apnea hypopnea, mild Insomnia Hypersomnia Vertigo Surgical History (Updated 01/22/25 @ 13:55 by RAHUL Keen) History of esophagogastroduodenoscopy (EGD) Hx of colonoscopy Hx of cholecystectomy History of hip replacement History of colon resection Social History Housing: Apartment Patient Tobacco Use Status: Former Tobacco user e-Cigarette/Vaping Use: Never Used Second Hand Smoke Exposure: No service: No Current occupational status: retired Current occupational exposures/hazards: No Cognitive needs: No Hearing needs: No Vision needs: Yes Physical Exam Vital Signs: Last Vital Signs Pulse 84 01/22/25 13:59 BP 129/55 L 01/22/25 13:59 BMI result Body Mass Index 32.2 Assessment & Plan Assessment & Plan (1) Diarrhea: Code(s): R19.7 - Diarrhea, unspecified Category: Medical Plan: as above Coding Level of Care Code Est Pt Level 4 (20825) Diagnoses Diarrhea R19.7
[2025-01-22 13:59] VITALS: BP 129/55; PULSE 84; BMI 32.2
--- OUTSIDE RECORDS SUMMARY | 2025-01-22 16:07 | XMS_ITS | Clinical Summary ---
Author Organization [facility] [address] [facility] Address [address] [facility] [place] [address] Phone Care Team Providers Care Filler Wiper Name Role Phone Unavailable Primary Care Provider Unavailabl e Encounters Date Type Department Care Team Description 11/28/2024 1:23 PM EST - 11/28/2024 11:59 PM EST Hospital Encounter Xrjosefina Boles [address] [facility] [place] [phone] Other pruritus Discharge Disposition: Home or Self Care from Last 3 Months Social History Tobacco Use Types Packs/Day Years Used Date Smoking Tobacco: Never Assessed Comments Unknown Sex and Gender Information Value Date Recorded Sex Assigned at Female 11/28/2024 1:11 PM EST Legal Sex Female 1:07 PM EST Gender Identity Female 11/28/2024 1:11 PM EST Sexual Orientation Not on file Plan of Treatment Health Maintenance Due Date Last Done Comments Diabetes: Annual GFR (Glomerular Filtration Rate) 1949 Diabetes: Annual Foot Exam 1959 Diabetes: Annual Retina Eye Exam 1959 DTaP,Tdap,and Td Vaccines (1 - Tdap) 1968 Pneumococcal Vaccine: 50+ Years (1 of 2 - PCV) 1968 Zoster Vaccines (1 of 2) 1968 Cholesterol Screening (Lipid Panel) 11/28/2024 Colorectal Cancer Screening: Colonoscopy 11/28/2024 Depression Screening 11/28/2024 Diabetes: Annual Urine Albumin-Creatinine Ratio (uACR) 11/28/2024 Diabetes: Blood Sugar Contro l Test (HGBA1C) 11/28/2024 Falls Risk Assessment 11/28/2024 Hepatitis C Screening 11/28/2024 Hypertension/CHF/CAD Annual BMP Blood Test 11/28/2024 Medicare Annual Wellness Visit 11/28/2024 Osteoporosis Screening (Bone Density Screening) 11/28/2024 Social Influencers of Health Screening 11/28/2024 RSV Immunization Adult Patients Completed 08/26/2023 COVID-19 Vaccine Completed 07/05/2024, 09/30/2023, 08/03/2022 Influenza Vaccine Completed 07/05/2024, 07/10/2023, 07/13/2022 HIB Vaccines Aged Out No longer eligi ble based on patient's age to complete this topic HPV Vaccines Aged Out No longer eligi ble based on patient's age to complete this topic Hepatitis A Vaccines Aged Out No long er eligible based on patient's age to complete this topic Hepatitis B Vaccines Aged Out No long er eligible based on patient's age to complete this topic IPV Vaccines Aged Out No longer eligi ble based on patient's age to complete this topic MMR Vaccines Aged Out No longer eligi ble based on patient's age to complete this topic Meningococcal ACWY Vaccine Aged Out N o longer eligible based on patient's age to complete this topic Meningococcal B Vaccine Aged Out No l onger eligible based on patient's age to complete this topic RSV Immunization Patients Under 20 months Aged Out No longer eligible b ased on patient's age to complete this topic Varicella Vaccines Aged Out No longer eligible based on patient's age to complete this topic Procedures Procedure Name Priority Date/Time Associated Diagnosis Comments XR CERVICAL SPINE 4-5 VIEWS Routine 11/28/2024 2:04 PM EST Other pruritus from Last 3 Months Results * XR Cervical Spine 4-5 Views (11/28/2024 2:04 PM EST) Anatomical Region Laterality Modality Spine, C-spine Radiographic Oralia ging 11/28/2024 7:30 PM EST Narrative 11/28/2024 7:51 PM EST Cervical spine, 4 views. History pain. There is narrowing of the disc spaces at C4-5 C5-6 and C6-7 levels. There are degenerative changes in the uncovertebral joints. There is osteophytic narrowing of the right C6 and C7 neural foramina and left C6 neural foramen. No fractures, dislocations or destructive lesions. CONCLUSIONS: Degenerative changes as detailed. -------- FINAL REPORT -------- Dictated By: Dorota Michaud Dictated Date: 11/28/2024 19:30 ET Assigned Physician: Dorota Michaud Reviewed and Electronically Signed By: Dorota Michaud Signed Date: 11/28/2024 19:51 ET Workstation ID: [id number] Transcribed By: Self Edit Transcribed Date: 11/28/2024 19:30 ET Procedure Note Dorota Michaud MD - 11/28/2024 Cervical spine, 4 views. History pain. There is narrowing of the disc spaces at C4-5 C5-6 and C6-7 levels. Thereare degenerative changes in the uncovertebral joints. There is osteophyticnarrowing of the right C6 and C7 neural foramina and left C6 neuralforamen. No fractures, dislocations or destructive lesions. CONCLUSIONS: Degenerative changes as detailed. -------- FINAL REPORT -------- Dictated By: Dorota Michaud Dictated Date: 11/28/2024 19:30 ET Assigned Physician: Dorota Michaud Reviewed and Electronically Signed By: Dorota Michaud Signed Date: 11/28/2024 19:51 ET Workstation ID: [id number] Transcribed By: Self Edit Transcribed Date: 11/28/2024 19:30 ET Rianna RICHARDSON IMG XR PROCEDURES Final R esult from Last 3 Months Insurance [facility] MED[facility] - [place] MEDICARE
== END 2025-01-22 14:26 | disposition home or self-care (01) ==
LOC: HO.HGI 13:53
PROVIDERS: PCP Family Medicine; Visit Provider Internal Medicine Gastroenterology
DX: R19.7 Diarrhea, unspecified (principal)
CPT/HCPCS: 99214

== ENCOUNTER → 2025-01-22 13:53 | Outpatient (BNVA) | payer MEDICARE, SELFPAY | PROVIDERS: PCP Family Medicine; Visit Provider Internal Medicine Gastroenterology | DX: R19.7 Diarrhea, unspecified (principal) | CPT/HCPCS: 99212 ==

== ENCOUNTER 2025-02-20 13:52 | Outpatient (REF) | payer MEDICARE, SELFPAY ==
--- OUTSIDE RECORDS SUMMARY | 2025-02-20 15:04 | XMS_ITS | Clinical Summary ---
Author Organization [facility] [address] Address [address] [facility] [place] [address] Phone Care Team Providers Care Telepathist Name Role Phone Unavailable Primary Care Provider Unavailabl e Encounters Date Type Department Care Team Description 11/28/2024 1:23 PM EST - 11/28/2024 11:59 PM EST Hospital Encounter Xrjosefina Boles [address] [facility] [place] [phone] Other pruritus Discharge Disposition: Home or Self [...] 11/28/2024 Social Influencers of Health Screening 11/28/2024 COVID-19 Vaccine (4 - Modern a risk season) 2025 07/05/2024, 09/30/2023, 08/03/2022 RSV Immunization Adult Patients Completed 08/26/2023 Influenza Vaccine Completed 07/05/2024, 07/10/2023, 07/13/2022 HIB [...] Signed Date: 11/28/2024 19:51 ET Workstation ID: [id number] Transcribed By: Self Edit Transcribed Date: 11/28/2024 [...] Signed Date: 11/28/2024 19:51 ET Workstation ID: [id number] Transcribed By: Self Edit Transcribed Date: 11/28/2024 19:30 ET Rianna RICHARDSON IMG XR PROCEDURES Final R esult from Last 3 Months [facility] [place] MEDIC[facility]
== END 2025-02-20 13:53 | disposition home or self-care (01) ==
LOC: HO.MAMMO 13:52
PROVIDERS: PCP Family Medicine; Visit Provider Family Medicine
DX: Z12.31 Encounter for screening mammogram for malignant neoplasm of breast (principal)
CPT/HCPCS: 77063; 77067

== ENCOUNTER → 2025-02-20 14:15 | Outpatient (BNV) | payer MEDICARE, SELFPAY | PROVIDERS: PCP Family Medicine; Visit Provider Internal Medicine | DX: Z12.31 Encounter for screening mammogram for malignant neoplasm of breast (principal) | CPT/HCPCS: 77063; 77067 ==

== ENCOUNTER 2025-04-26 08:16 | Outpatient (REF) | payer MEDICARE, SELFPAY ==
--- OUTSIDE RECORDS SUMMARY | 2025-04-26 08:19 | XMS_ITS | Patient Health Record ---
Author Organization [facility] Address [address] [facility] [address] [place], [place] [id number] Care Team Providers Care Applied Psychology Teacher Name Role Phone ALICIA VIZCAINO MD Primary Care Provider Unavail able TREASURE OSEI Unavailable [phone] Reason For Referral No Information Medications Medication SIG (Take, Route, Fr equency, Duration) Notes Start Date End Date Status Lisinopril 10 MG 1 tablet Orally Once a day for 30 day(s) Active Vitamin D 1000 UNIT 1 tablet Orally Once a day for 30 day(s) Active metFORMIN HCl 500 MG 1 tablet with meals Orally ONCE A DAY for 30 day(s) Active Magnesium 500 MG 1 tablet with a meal Orally Once a day Active Social History Tobacco Use: Social History Observation Description Date Details (start date - stop date) Never Smoker NA - NA Tobacco Use/Smoking Question Answer Notes Are you a nonsmoker Alcohol Screen Question Answer Notes Did you have a drink contain ing alcohol in the past year? Yes How often did you have 6 or more drinks on one occasion in the past year? Never (0 point) How many drinks did you have on a typical day when you were drinking in the past year? 1 or 2 drinks (0 point) How often did you have a dri nk containing alcohol in the past year? 2 to 3 times a week (3 points) Problems Problem Type SNOMED Code ICD Code Onset Dates Problem Status W/U Status Risk Notes Problem Acquired trigger finger (9538663) Trigger finger, left middle finger (M65.332) Active confirmed Plan Of Treatment Pending Test Test Name Order Date Injection-Single Tendon/Lig 09/17/2015 INJECTION KENALOG 10 MG 09/17/2015 Insurance Providers Payer Name Payer Address Payer Phone Subscriber Number Group Number Insured Name Patient Relationship to Insured Coverage Start Date Coverage End Date MEDICARE PART B [address] [address] [place] Hernandez [phone] [id number] KASEY MACKAY Self - patient is the insured [facility] [address] [place], [place] [phone] [id number] KASEY MACKAY Self - patient is the insured Medical (General) History Medical History History ICD Code hypertension: Yes osteoarthritis: Yes diabetes mellitus: Yes cancer: Yes restless leg syndrome: Yes Carpal tunnel syndrome Surgical History Surgery Date(Month/Year) removal of 20 inches of colon/ colon can cer 01/20/2007
[2025-04-26 11:07] LABS: MANUAL DIFF FLAG NO
[2025-04-26 11:15] LABS: Hematocrit 29.3 % (37.0-47.0); Hemoglobin 10.1 g/dl (12.0-16.0); Imm Gran Abs Auto 0.03 X10*3/uL (0.00-0.03); Imm Gran Pct Auto 0.5 % (0.0-0.4); Lymphocytes Absolute Auto 1.5 X10*3/uL (1.2-4.9); Mean Corpuscular HGB Conc 34.5 g/dl (31.0-35.0); Mean Corpuscular Hemoglobin 32.0 pg (27.0-33.0); Mean Corpuscular Volume 92.7 fL (80.0-98.0); NRBC Abs Auto 0.000 X10*3/uL (0.0-0.012); NRBC Pct Auto 0.0 /100WBC (0.0-0.2); Platelet Count 238 X10*3/uL (160-400); Red Blood Count 3.16 X10*6/uL (4.20-5.50); White Blood Count 5.9 X10*3/uL (4.8-10.8)
[2025-04-26 11:44] LABS: Anion Gap 12 (12-20); Blood Urea Nitrogen 29 mg/dL (9-16); Calcium 8.7 mg/dL (8.4-10.2); Carbon Dioxide 26 mmol/L (22-29); Chloride 106 mmol/L (96-108); Estimated Glomerular Filt Rate 48; Potassium 4.6 mmol/L (3.3-5.1); Sodium 139 mmol/L (135-145)
[2025-04-26 12:03] LABS: Microalbum/Creatinine Ratio Ur 6.3 ug/mg cr (<30)
[2025-04-26 12:56] LABS: Appearance Urine Clear; Glucose Urine UA Negative (Negative); PH 5.5 (5.0-9.0); Specific Gravity - Urine 1.020 (1.005-1.025); UMIC TRIGGER UA YES
== END 2025-04-26 08:17 | disposition home or self-care (01) ==
LOC: HO.WFDLDS 08:16
PROVIDERS: Visit Provider Family Medicine
DX: Z00.00 Encounter for general adult medical examination without abnormal findings (principal); G89.29 Other chronic pain; K51.50 Left sided colitis without complications; I10 Essential (primary) hypertension; D64.9 Anemia, unspecified; E63.9 Nutritional deficiency, unspecified; M79.10 Myalgia, unspecified site; T73.0XXA Starvation, initial encounter; R10.33 Periumbilical pain; R19.7 Diarrhea, unspecified; R41.89 Other symptoms and signs involving cognitive functions and awareness; X58.XXXA Exposure to other specified factors, initial encounter; Z91.018 Allergy to other foods
CPT/HCPCS: 36415; 80048; 81001; 81003; 82043; 82570; 84443; 85025

== ENCOUNTER 2025-05-03 15:06 | Outpatient (AMB) | payer MEDICARE, SELFPAY ==
--- OUTSIDE RECORDS SUMMARY | 2025-05-03 15:11 | XMS_ITS | Patient Health Record ---
Author Organization [facility] Address [address] [facility] [address] [place], [place] [id number] Care Team Providers Care Hand Cloth Cutter Name Role Phone ALICIA VIZCAINO MD Primary Care Provider Unavail able TREASURE OSEI Unavailable [phone] Reason For Referral No Information Medications Medication [...] Status Risk Notes Problem Acquired trigger finger (0868802) Trigger finger, left middle finger (M65.332) Active confirmed Plan Of Treatment Pending Test Test Name Order Date Injection-Single Tendon/Lig 09/17/2015 INJECTION KENALOG 10 MG 09/17/2015 Insurance Providers Payer Name Payer Address Payer Phone Subscriber Number Group Number Insured Name Patient Relationship to Insured Coverage Start Date Coverage End Date MEDICARE PART B [address] [address] [place] MICHELLE [phone] [id number] Self - patient is the insured [facility] [address] [place], [place] [id number] KASEY MACKAY Self - patient is the insured Medical (General) History Medical History History ICD Code hypertension: Yes osteoarthritis: Yes diabetes mellitus: Yes cancer: Yes restless leg syndrome: Yes Carpal tunnel syndrome Surgical History Surgery Date(Month/Year) removal of 20 inches of colon/ colon can cer 01/20/2007
--- NOTE | 2025-05-03 15:13 | A.OFFPC_ITS ---
Vital Signs 05/03/25 15:18 Height 5 ft Weight 164 lb BMI 32.0 BP 128/72 Blood Pressure Location Rt brachial Position Sitting Respiration 14 Pulse 74 Pulse Source Pulse Oximeter Temp 97.7 F Temp Source Oral Pulse Oximetry (%) 95 Oxygen Delivery Method Room Air Intake Visit Reasons: cpe Intake Note: Physical Target Aircraft Controller Required: No Allergies No Known Allergies Allergy (Verified 05/03/25 15:16) Medication List - Last Reconciled 05/03/25 by Katherin Mckeon PA-C atorvastatin 20 mg PO BEDTIME 90 days cholecalciferol (vitamin D3) 1,250 mcg PO QWEEK gabapentin 300 mg PO DAILY irbesartan 150 mg PO DAILY 90 days Lactobacillus acidophilus 50 mmu cells PO TID 30 days latanoprost 0.005% 1 drp ophthalmic (eye) QPM magnesium oxide 500 mg PO DAILY melatonin 5 mg PO BEDTIME PRN 3 months pantoprazole 40 mg PO DAILY timolol maleate 0.5% drps ophthalmic (eye) Tobacco use date assessed: 05/03/25 Fall risk assessment: 1 Fall in past year Last assessed Fall Risk: 05/03/25 Dental Screening Dental Screen Date: 05/03/25 Did you have a dental visit in the last 12 months?: Yes Did you have a dental problem in the last 6 months where you did not have access to dental care?: No Was dental information given to patient?: Patient has dentist HPI cpe HPI Details Pt is a 75 y.o female who presents today for a physical exam. She normally follows with Dr. Hitchcock. She has a significant past medical history of vertigo, hypertension, hyperlipidemia, type 2 diabetes and CKD. Neuro: She went to PT for vertigo. She has had an MRI, CT, sleep studies and states that there has been no resolution of this but has had for to go for years. She has followed with vestibular rehab, Neurology and ENT. She says that she just lives with it and moves her head very slowly. Endo: T2DM on Januvia. Last A1c was 6. She does have a nephropathy. She is on an THAIS inhibitor. Nephro: Uses ibuprofen as needed. Has CKD and states that she was not aware that NSAIDs are not ideal to take with this. CV: Blood pressure today in the office is 128/72. She is currently on irbesartan 150 mg daily. Cholesterol is managed with atorvastatin 20 mg. GI: On pantoprazole 40 mg daily. Following with GI for chronic diarrhea. Up-to-date on double endoscopy. Mammo: Up-to-date Bone density: Up-to-date Colonoscopy: Up-to-date [facility] Medical History Myalgia Diabetes HTN (hypertension) Anemia Ulcerative colitis Osteoarthritis Obstructive sleep apnea hypopnea, mild Insomnia Hypersomnia Vertigo Surgical History (Updated 01/22/25 @ 13:55 by RAHUL Keen) History of esophagogastroduodenoscopy (EGD) Hx of colonoscopy Hx of cholecystectomy History of hip replacement History of colon resection Social History Housing: Apartment Patient Tobacco Use Status: Former Tobacco user e-Cigarette/Vaping Use: Never Used Second Hand Smoke Exposure: No service: No Current occupational status: retired Current occupational exposures/hazards: No Cognitive needs: No Hearing needs: No Vision needs: Yes Questionnaire Thrive Questionnaire Date Thrive assessed: 12/07/22 I am a: Patient What is your living situation today?: I have a steady place to live Within the past 12 months, did the food you bought not last and you didn't have the money to get more?: Never true Within the past 12 months, did you worry whether your food would run out before you got money to buy more?: Never true Do you have trouble paying for medicines?: No Do you have trouble getting transportation to medical appointments?: No Do you have trouble paying your heating and electricity bill?: No Do you have trouble taking care of your child, family member or friend?: I choose not to answer this question Do you have trouble with day-to-day activities such as bathing, preparing meals, shopping, managing finances, etc.?: No Are you currently unemployed and looking for a job?: No Are you interested in more education?: No Please select the resources that you would like help with: None Currently or been in a relationship where the following occur: No concerns reported THRIVE Score: 0 JESSICA-7 AMB Questionnaire JESSICA-7 Date JESSICA - 7 assessed: 11/01/23 Source: Developed by Drs. Robbin L. MelyssaShruthi archuleta, Davey Petty and colleagues, with an educational snehal from [employer]. Physical exam (Primary Care) Vital Signs: Last Vital Signs Temp 97.7 F 05/03/25 15:18 Pulse 74 05/03/25 15:18 Resp 14 05/03/25 15:18 BP 128/72 05/03/25 15:18 Pulse Ox 95 05/03/25 15:18 Oxygen Delivery Method Room Air 05/03/25 15:18 BMI result Body Mass Index 32.0 Tobacco/Smoking Status: Tobacco use Status Tobacco use date assessed 05/03/25 05/03/25 15:21 Patient Tobacco Use Status Former Tobacco user 05/03/25 15:14 e-Cigarette/Vaping Use Never Used 05/03/25 15:14 Thrive Assessment: Date of Thrive Assessment Date Thrive assessed 12/07/22 05/03/25 15:14 Currently or been in a relationship where the following occur: No concerns reported Const Orientation/consciousness: patient oriented x3 HENMT Ears: hearing grossly normal bilaterally and TM's normal bilaterally General nose exam: No nasal polyps present Face and sinus: Yes sinuses nontender Mouth: Normal oral and palatal mucosa present Eyes Pupils: Equal, round and reactive pupils present EOM: EOMs intact bilaterally Neck Neck: Yes full ROM and Yes no lymphadenopathy Thyroid: Thyroid normal Chest Chest palpation & inspection: normal inspection of the chest Resp Auscultation: clear to auscultation bilaterally Cardio Rate: regular rate Rhythm: regular rhythm Heart sounds: S1 normal heart sound present and S2 normal heart sound present Peripheral pulses: Peripheral pulses 2+ throughout GI Other: Soft, nontender Auscultation: normal bowel sounds Rectal Exam - Female: deferred General: Yes no CVA tenderness Back/Spine/Pelvis Other: Nontender Back: no CVA tenderness Skin General skin exam: no rashes or lesions noted Neuro General: patient oriented x3, gait normal, CN's II-XI intact bilaterally and deep tendon reflexes 2+ bilaterally Cranial nerves: Yes Equal, round and reactive pupils present Motor exam (neuro): 5/5 motor strength present throughout Sensory Exam: double simultaneous stimulation for sensation normal Coordination: [id number]-[id number] test normal and Romberg test negative Extrem General: Yes normal to inspection and Yes full ROM Psych Affect: normal affect Attitude: cooperative Thought process: Normal thought process present Thought content: Normal thought content present Insight: Good insight present (Psych) Judgement: Good judgement present (Psych) Results Reviewed Results Reviewed: Laboratory Tests 11/01/24 04/26/25 11:00 08:23 WBC 5.9 RBC 3.16 L Hgb 10.1 L Hct 29.3 L Sodium 139 Potassium 4.6 Chloride 106 Carbon Dioxide 26 Anion Gap 12 BUN 29 H Creatinine 1.11 Estimated GFR 48 Fasting Glucose 116 H Hgb A1c (Clinic) 6.0 Calcium 8.7 Coding Level of Care Code Est Pt Level 3 (68544) Est Pt Prev Care >65y(72243) Diagnoses Well controlled diabetes mellitus E11.9 Vertigo R42 Diarrhea R19.7 Anemia D64.9 Hypertension I10 Hyperlipidemia E78.5 Routine general medical examination at a health care facility Z00.00 Assessment & Plan Assessment & Plan (1) Well controlled diabetes mellitus: Code(s): E11.9 - Type 2 diabetes mellitus without complications Category: Medical Plan: Discontinue Januvia we will switch to Jardiance given the renal disease. We discussed risks and benefits and adverse effects of this medication including but not limited to increased urinary frequency and urgency, yeast infections etc.. She will let me know if she is unable to tolerate this. I will have her return in 2-3 weeks and repeat BMP and UA prior (2) Vertigo: Code(s): R42 - Dizziness and giddiness Category: Medical Plan: Stable (3) Diarrhea: Code(s): R19.7 - Diarrhea, unspecified Category: Medical Plan: Following with GI. She is also on magnesium daily. I have advised her to temporarily hold this if see if this improves any of her diarrhea. (4) Anemia: Code(s): D64.9 - Anemia, unspecified Category: Medical Plan: Has had a chronic anemia. I will check labs. She does not believe she has followed with Hematology in the past. She is up-to-date on endoscopy colonoscopy (5) Hypertension: Code(s): I10 - Essential (primary) hypertension Category: Medical Plan: WNL. Continue current regimen (6) Hyperlipidemia: Code(s): E78.5 - Hyperlipidemia, unspecified Category: Medical Plan: Continue with the Lipitor. (7) Routine general medical examination at a health care facility: Code(s): Z00.00 - Encounter for general adult medical examination without abnormal findings Plan: Health maintenance reviewed. Labs ordered. Short term follow up. Orders: Orders Basic Metabolic Panel 05/03/25 D64.9 - Anemia, unspecified, E11.9 - Type 2 diabetes mellitus without complications, R19.7 - Diarrhea, unspecified, R42 - Dizziness and giddiness Vitamin B12 and Folate 05/03/25 D64.9 - Anemia, unspecified, E11.9 - Type 2 diabetes mellitus without complications, R19.7 - Diarrhea, unspecified, R42 - Dizziness and giddiness IRON PROFILE 05/03/25 D64.9 - Anemia, unspecified, E11.9 - Type 2 diabetes mellitus without complications, R19.7 - Diarrhea, unspecified, R42 - Dizziness and giddiness Complete Blood Count Auto Diff 05/03/25 D64.9 - Anemia, unspecified, E11.9 - Type 2 diabetes mellitus without complications, R19.7 - Diarrhea, unspecified, R42 - Dizziness and giddiness Ferritin 05/03/25 D64.9 - Anemia, unspecified, E11.9 - Type 2 diabetes mellitus without complications, R19.7 - Diarrhea, unspecified, R42 - Dizziness and giddiness Magnesium 05/03/25 D64.9 - Anemia, unspecified, E11.9 - Type 2 diabetes mellitus without complications, R19.7 - Diarrhea, unspecified, R42 - Dizziness and giddiness Microalbumin, Random (w Creat) 05/03/25 D64.9 - Anemia, unspecified, E11.9 - Type 2 diabetes mellitus without complications, R19.7 - Diarrhea, unspecified, R42 - Dizziness and giddiness Medications: New empagliflozin (Jardiance) 10 mg PO QAM 90 tabs 0RF Discontinued magnesium oxide Discontinued Reason: Doctor's Order 500 mg PO DAILY 90 tabs 3RF
[2025-05-03 15:18] VITALS: BP 128/72; PULSE 74; RESP 14; TEMP 36.5; O2SAT 95; BMI 32.0
== END 2025-05-03 15:57 | disposition home or self-care (01) ==
LOC: HO.HMCFM 15:07
PROVIDERS: PCP Family Medicine; Visit Provider Physician Assistant
DX: E11.69 Type 2 diabetes mellitus with other specified complication (principal); R42 Dizziness and giddiness; R19.7 Diarrhea, unspecified; D64.9 Anemia, unspecified; I10 Essential (primary) hypertension; E78.5 Hyperlipidemia, unspecified

== ENCOUNTER → 2025-05-03 15:06 | Outpatient (BNVA) | payer MEDICARE, SELFPAY | PROVIDERS: PCP Family Medicine; Visit Provider Physician Assistant | DX: Z00.00 Encounter for general adult medical examination without abnormal findings (principal); E11.9 Type 2 diabetes mellitus without complications; R42 Dizziness and giddiness; R19.7 Diarrhea, unspecified; D64.9 Anemia, unspecified; E78.5 Hyperlipidemia, unspecified; I10 Essential (primary) hypertension | CPT/HCPCS: 99212 ==

== ENCOUNTER 2025-05-14 08:42 | Outpatient (REF) | payer MEDICARE, SELFPAY ==
--- OUTSIDE RECORDS SUMMARY | 2025-05-14 09:04 | XMS_ITS | Patient Health Record ---
Author Organization [facility] Address [address] [facility] [address] [place] [address], [place] [id number] Care Team Providers Care Seismometer Operator Name Role Phone ALICIA VIZCAINO MD Primary Care Provider Unavail able TREASURE OSEI Unavailable [phone] Reason For Referral No Information Medications Medication SIG (Take, Route, Fr equency, Duration) Notes Start Date End Date Status Lisinopril 10 MG 1 tablet Orally Once a day; Duration: 30 day(s) Active Vitamin D 1000 UNIT 1 tablet Orally Once a day; Duration: 30 day(s) Active metFORMIN HCl 500 MG 1 tablet with meals Orally ONCE A DAY; Duration: 30 day(s) Activ e Magnesium 500 MG 1 tablet with a [...] Status Risk Notes Problem Acquired trigger finger (3893221) Trigger finger, left middle finger (M65.332) Active confirmed Plan Of Treatment Pending Test Test Name Order Date Injection-Single Tendon/Lig 09/17/2015 INJECTION KENALOG 10 MG 09/17/2015 Insurance Providers Payer Name Payer Address Payer Phone Subscriber Number Group Number Insured Name Patient Relationship to Insured Coverage Start Date Coverage End Date MEDICARE PART B [address] [address] [place] [phone] [id number] MINDAKASEY GUZMAN Self - patient is the insured [facility] [address] [place], [place] [id number] FILEMON MACKAYILA Self - patient is the insured Medical (General) History Medical History History ICD Code hypertension: Yes osteoarthritis: Yes diabetes mellitus: Yes cancer: Yes restless leg syndrome: Yes Carpal tunnel syndrome Surgical History Surgery Date(Month/Year) removal of 20 inches of colon/ colon can cer 01/20/2007
[2025-05-14 11:57] LABS: Anion Gap 12 (12-20); Blood Urea Nitrogen 28 mg/dL (9-16); Calcium 9.3 mg/dL (8.4-10.2); Carbon Dioxide 27 mmol/L (22-29); Chloride 104 mmol/L (96-108); Estimated Glomerular Filt Rate 41; Iron 63 mcg/dL (30-160); Magnesium 1.6 mg/dL (1.6-2.6); Percent Iron Saturation 25 % (15-50); Potassium 4.1 mmol/L (3.3-5.1); Sodium 139 mmol/L (135-145); Total Iron Binding Capacity 256 mcg/dL (228-428); Unsaturated Iron Binding 193 ug/dL
[2025-05-14 12:22] LABS: Ferritin 144 ng/mL (10-250)
[2025-05-14 12:32] LABS: Folate 4.9 ng/mL (> or = 4.0); Vitamin B12 418 pg/mL (200-900)
[2025-05-14 14:17] LABS: Appearance Urine Clear; Glucose Urine UA >=1000 mg/dL (Negative); PH 5.5 (5.0-9.0); Specific Gravity - Urine 1.020 (1.005-1.025); UMIC TRIGGER UA YES
[2025-05-14 14:43] LABS: Microalbum/Creatinine Ratio Ur 5.7 ug/mg cr (<30)
== END 2025-05-14 08:43 | disposition home or self-care (01) ==
LOC: HO.WFDLDS 08:42
PROVIDERS: Family Medicine; Visit Provider Physician Assistant
DX: E11.9 Type 2 diabetes mellitus without complications (principal); D64.9 Anemia, unspecified; R19.7 Diarrhea, unspecified; R42 Dizziness and giddiness
CPT/HCPCS: 36415; 80048; 81001; 81003; 82043; 82570; 82607; 82728; 82746; 83540; 83735

== ENCOUNTER 2025-05-16 13:29 | Outpatient (REF) | payer MEDICARE, SELFPAY ==
--- OUTSIDE RECORDS SUMMARY | 2025-05-16 14:01 | XMS_ITS | Patient Health Record ---
Author Organization [facility] Address [address] [facility] [address] [place], [place] [id number] Care Team Providers Care Machine Learning Intern Name Role Phone ALICIA VIZCAINO MD Primary Care Provider Unavail able TREASURE OSEI Unavailable [phone] Reason For Referral No Information Medications Medication [...] Status Risk Notes Problem Acquired trigger finger (7065585) Trigger finger, left middle finger (M65.332) Active confirmed Plan Of Treatment Pending Test Test Name Order Date Injection-Single Tendon/Lig 09/17/2015 INJECTION KENALOG 10 MG 09/17/2015 Insurance Providers Payer Name Payer Address Payer Phone Subscriber Number Group Number Insured Name Patient Relationship to Insured Coverage Start Date Coverage End Date MEDICARE PART B [address] [address] [place] [phone] [id number] MINDAKASEY GUZMAN Self - patient is the insured [facility] [address] [place], [place] [id number] FILEMON MACKAYILA Self - patient is the insured Medical (General) History Medical History History ICD Code hypertension: Yes osteoarthritis: Yes diabetes mellitus: Yes cancer: Yes restless leg syndrome: Yes Carpal tunnel syndrome Surgical History Surgery Date(Month/Year) removal of 20 inches of colon/ colon can cer 01/20/2007
[2025-05-16 14:29] LABS: MANUAL DIFF FLAG NO
[2025-05-16 14:34] LABS: Hematocrit 31.0 % (37.0-47.0); Hemoglobin 10.6 g/dl (12.0-16.0); Imm Gran Abs Auto 0.02 X10*3/uL (0.00-0.03); Imm Gran Pct Auto 0.3 % (0.0-0.4); Lymphocytes Absolute Auto 1.6 X10*3/uL (1.2-4.9); Mean Corpuscular HGB Conc 34.2 g/dl (31.0-35.0); Mean Corpuscular Hemoglobin 31.5 pg (27.0-33.0); Mean Corpuscular Volume 92.3 fL (80.0-98.0); NRBC Abs Auto 0.000 X10*3/uL (0.0-0.012); NRBC Pct Auto 0.0 /100WBC (0.0-0.2); Platelet Count 271 X10*3/uL (160-400); Red Blood Count 3.36 X10*6/uL (4.20-5.50); White Blood Count 7.9 X10*3/uL (4.8-10.8)
== END 2025-05-16 13:30 | disposition home or self-care (01) ==
LOC: HO.WFDLDS 13:29
PROVIDERS: Visit Provider Physician Assistant
DX: E11.9 Type 2 diabetes mellitus without complications (principal); R19.7 Diarrhea, unspecified; D64.9 Anemia, unspecified; R42 Dizziness and giddiness
CPT/HCPCS: 36415; 85025

== ENCOUNTER 2025-05-24 13:33 | Outpatient (AMB) | payer MEDICARE, SELFPAY ==
--- NOTE | 2025-05-24 13:52 | MHC.PC.OV ---
Vital Signs 05/24/25 13:56 05/24/25 14:01 Height 5 ft Weight 155 lb 4 oz BMI 30.3 BP 102/58 L 104/68 Blood Pressure Location Rt brachial Lt brachial Position Sitting Pulse 85 Pulse Source Pulse Oximeter Temp 98.4 F Temp Source Temporal Artery Scan Pulse Oximetry (%) 97 Oxygen Delivery Method Room Air Intake Visit Reasons: dm and labs Intake Note: Rajni presents in the office today diabetes and labs. Allergies No Known Allergies Allergy (Verified 05/24/25 13:54) Medication List - Last Reconciled 05/24/25 by Katherin Mckeon PA-C atorvastatin 20 mg PO BEDTIME 90 days cholecalciferol (vitamin D3) 1,250 mcg PO QWEEK empagliflozin (Jardiance) 10 mg PO QAM gabapentin 300 mg PO DAILY irbesartan 150 mg PO DAILY 90 days Lactobacillus acidophilus 50 mmu cells PO ONCE latanoprost 0.005% 1 drp ophthalmic (eye) QPM melatonin 5 mg PO BEDTIME PRN 3 months pantoprazole 40 mg PO DAILY timolol maleate 0.5% drps ophthalmic (eye) Tobacco use date assessed: 05/24/25 Fall risk assessment: No Falls in past year Last assessed Fall Risk: 05/24/25 Dental Screening Dental Screen Date: 05/24/25 Did you have a dental visit in the last 12 months?: Yes Did you have a dental problem in the last 6 months where you did not have access to dental care?: No Was dental information given to patient?: Patient has dentist HPI dm and labs HPI Details Pt is a 75 y.o female who presents today for a follow up. She normally follows with Dr. Hitchcock. She has a significant past medical history of vertigo, hypertension, hyperlipidemia, type 2 diabetes and CKD. General: In the last 6 months she has lost 30 lb. She states that she does have increased activity but it continues to just fall off of her. About a year and a half ago she went through a messy break up and moved back to this area and was in the last year has transitioned to living in her own apartment and she remains active and she eats well. She says she has not really changed her activity in the last or her diet and just continues to lose weight. She does not feel sick other than foggy at times. She states that she would not say she gets full fast but she does not eat as much as she used to. No nausea, vomiting or diarrhea. Initially she thought the weight loss was related to change of lifestyle but it was concerning to her that she continues to lose weight eyelashes in the last month has lost 10 lb. A couple weeks so I did start her on Jardiance and she is aware that that could be contributing. She had a colonoscopy and endoscopy which he states was normal. Neuro: She went to PT for vertigo. She has had an MRI, CT, sleep studies and states that there has been no resolution of this but has had for to go for years. She has followed with vestibular rehab, Neurology and ENT. She says that she just lives with it and moves her head very slowly. Endo: T2DM on Jardiance 10 mg. Last A1c was 6. She does have a nephropathy. She is on an THAIS inhibitor. -recently started on Jardiance for the nephropathy Nephro: Uses ibuprofen as needed. Has CKD and states that she was not aware that NSAIDs are not ideal to take with this. CV: Blood pressure today in the office is 102/58. She is currently on irbesartan 150 mg daily. Cholesterol is managed with atorvastatin 20 mg. GI: On pantoprazole 40 mg daily. Following with GI for chronic diarrhea. Up-to-date on double endoscopy. Mammo: Up-to-date Bone density: Up-to-date Colonoscopy: Up-to-date [facility] Medical History (Updated 05/24/25 @ 14:14 by Katherin Mckeon PA-C) Myalgia Diabetes HTN (hypertension) Anemia Ulcerative colitis Osteoarthritis Obstructive sleep apnea hypopnea, mild Insomnia Hypersomnia Vertigo Surgical History (Updated 01/22/25 @ 13:55 by RAHUL Keen) History of esophagogastroduodenoscopy (EGD) Hx of colonoscopy Hx of cholecystectomy History of hip replacement History of colon resection Social History (Updated 05/24/25 @ 13:56 by Yisel Cooper MA) Housing: Apartment Alcohol intake: current Alcohol intake frequency: holidays/special occasions only Patient Tobacco Use Status: Former Tobacco user e-Cigarette/Vaping Use: Never Used Second Hand Smoke Exposure: No service: No Current occupational status: retired Current occupational exposures/hazards: No Cognitive needs: No Hearing needs: No Vision needs: Yes Questionnaire Thrive Questionnaire Date Thrive assessed: 10/25/24 I am a: Patient What is your living situation today?: I have a steady place to live Within the past 12 months, did the food you bought not last and you didn't have the money to get more?: Never true Within the past 12 months, did you worry whether your food would run out before you got money to buy more?: Never true Do you have trouble paying for medicines?: No Do you have trouble getting transportation to medical appointments?: No Do you have trouble paying your heating and electricity bill?: No Do you have trouble taking care of your child, family member or friend?: I choose not to answer this question Do you have trouble with day-to-day activities such as bathing, preparing meals, shopping, managing finances, etc.?: No Are you currently unemployed and looking for a job?: No Are you interested in more education?: No Please select the resources that you would like help with: None Currently or been in a relationship where the following occur: No concerns reported THRIVE Score: 0 JESSICA-7 AMB Questionnaire JESSICA-7 Date JESSICA - 7 assessed: 11/01/23 Source: Developed by Drs. Robbin Ragsdale, Shruthi Nair, Davey Petty and colleagues, with an educational snehal from [employer]. Physical exam (Primary Care) Vital Signs: Last Vital Signs Temp 98.4 F 05/24/25 13:56 Pulse 85 05/24/25 13:56 BP 104/68 05/24/25 14:01 Pulse Ox 97 05/24/25 13:56 Oxygen Delivery Method Room Air 05/24/25 13:56 BMI result Body Mass Index 30.3 Tobacco/Smoking Status: Tobacco use Status Tobacco use date assessed 05/24/25 05/24/25 14:01 Patient Tobacco Use Status Former Tobacco user 05/24/25 14:01 e-Cigarette/Vaping Use Never Used 05/24/25 14:01 Thrive Assessment: Date of Thrive Assessment Date Thrive assessed 10/25/24 05/24/25 14:01 Currently or been in a relationship where the following occur: No concerns reported Const Orientation/consciousness: patient oriented x3 HENMT Ears: hearing grossly normal bilaterally Neck Thyroid: Thyroid normal Lymphatic: no lymphadenopathy noted Resp Auscultation: clear to auscultation bilaterally Cardio Rate: regular rate Rhythm: regular rhythm Heart sounds: S1 normal heart sound present and S2 normal heart sound present GI Inspection: Yes normal to inspection Palpation (GI): Soft to palpation and Other GI palpation findings present (nontender, no cva tenderness) Auscultation: normoactive bowel sounds Rectal Exam - Female: deferred Skin General skin exam: no rashes or lesions noted Neuro General: patient oriented x3, gait normal and no focal motor deficits Results AMB Hemoglobin A1c AMB Hemoglobin A1c 6.3 % Last Edit by Yisel Cooper MA on 05/24/25 14:14 Results Reviewed Results Reviewed: Laboratory Last Values Hgb A1c (Clinic) 6.3 % (4.0-6.0) H 05/24/25 14:07 Laboratory Tests 05/14/25 05/14/25 05/16/25 08:40 08:46 13:32 WBC 7.9 RBC 3.36 L Hgb 10.6 L Hct 31.0 L Plt Count 271 Creatinine 1.26 Estimated GFR 41 Random Glucose 132 H Iron 63 Vitamin B12 418 Urine Creatinine 103.58 Urine Microalbumin 6.0 Microalb/Creat Ratio 5.7 Coding Level of Care Code Est Pt Level 4 (27408) Complex EM visit Add On G2211 Diagnoses Hypertension I10 Hyperlipidemia E78.5 Well controlled diabetes mellitus E11.9 Anemia D64.9 Weight loss R63.4 Assessment & Plan Assessment & Plan (1) Hypertension: Code(s): I10 - Essential (primary) hypertension Category: Medical Plan: Blood pressure is lower. She has lost weight since I last saw her. I will reduce her irbesartan to 75 mg (2) Hyperlipidemia: Code(s): E78.5 - Hyperlipidemia, unspecified Category: Medical Plan: Continue atorvastatin (3) Well controlled diabetes mellitus: Code(s): E11.9 - Type 2 diabetes mellitus without complications Category: Medical Plan: Continue current regimen. We will recheck labs in a few months. (4) Anemia: Code(s): D64.9 - Anemia, unspecified Category: Medical Plan: Referral to Heme-Onc (5) Weight loss: Code(s): R63.4 - Abnormal weight loss Category: Medical Plan: She has lost 30 lb in 1 year. Most of the weight loss has been the last few months. Chest x-ray, labs, CT abdomen and pelvis, referral as above Orders: Orders AMB Hemoglobin A1c 05/24/25 Katherin Mckeon PA-C E11.9 - Type [address] abdomen pelvis wo/w IV con 05/24/25 Katherin Mckeon PA-C D64.9 - Anemia, unspecified, R63.5 - Abnormal weight gain XR chest 2V 05/24/25 Katherin Mckeon PA-C D64.9 - Anemia, unspecified, R63.4 - Abnormal weight loss Complete Blood Count Auto Diff 05/24/25 Katherin Mckeon PA-C E11.9 - Type 2 diabetes mellitus without complications, E78.5 - Hyperlipidemia, unspecified, I10 - Essential (primary) hypertension Comprehensive [place]. Panel Fast 05/24/25 Katherin Mckeon PA-C E11.9 - Type 2 diabetes mellitus without complications, E78.5 - Hyperlipidemia, unspecified, I10 - Essential (primary) hypertension Microalbumin, Random (w Creat) 05/24/25 Katherin Mckeon PA-C E11.9 - Type 2 diabetes mellitus without complications, E78.5 - Hyperlipidemia, unspecified, I10 - Essential (primary) hypertension Hemoglobin A1c 05/24/25 Katherin Mckeon PA-C E11.9 - Type 2 diabetes mellitus without complications, E78.5 - Hyperlipidemia, unspecified, I10 - Essential (primary) hypertension, R73.01 - Impaired fasting glucose Referrals Hematology & Oncology Referral Katherin Mckeon PA-C D64.9 - Anemia, unspecified, R63.4 - Abnormal weight loss Medications: New irbesartan 75 mg PO DAILY 90 tabs 0RF Katherin Mckeon PA-C Changed From Lactobacillus acidophilus 50 mmu cells PO TID 30 days 90 tabs 3RF To Lactobacillus acidophilus 50 mmu cells PO ONCE Sandeep Hitchcock MD Discontinued irbesartan Discontinued Reason: Doctor's Order 150 mg PO DAILY 90 days 90 tabs 0RF
[2025-05-24 13:56] VITALS: BP 102/58; PULSE 85; TEMP 36.9; O2SAT 97; BMI 30.3
[2025-05-24 14:01] VITALS: BP 104/68
== END 2025-05-24 14:22 | disposition home or self-care (01) ==
LOC: HO.HMCFM 13:34
PROVIDERS: PCP Family Medicine; Visit Provider Physician Assistant
DX: E11.9 Type 2 diabetes mellitus without complications (principal)

== ENCOUNTER → 2025-05-24 13:33 | Outpatient (BNVA) | payer MEDICARE, SELFPAY | PROVIDERS: PCP Family Medicine; Visit Provider Physician Assistant | DX: E11.9 Type 2 diabetes mellitus without complications (principal); E78.5 Hyperlipidemia, unspecified; I10 Essential (primary) hypertension; D64.9 Anemia, unspecified; R63.4 Abnormal weight loss | CPT/HCPCS: 83036; 99212 ==

== ENCOUNTER 2025-06-04 13:47 | Outpatient (AMB) | payer MEDICARE, SELFPAY ==
--- NOTE | 2025-06-04 13:49 | MHC.OFFVIS ---
Vital Signs 06/04/25 13:51 Height 5 ft Weight 156 lb 8.451 oz BMI 30.6 BP 148/65 H Blood Pressure Location Lt brachial Position Sitting Pulse 90 Intake Visit Reasons: 4m Intake Note: Rajni presents in the office as a 4 month follow up. CC: She is not having any concerns at this time! 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 Allergies No Known Allergies Allergy (Verified 06/04/25 13:51) HPI HPI 4m: Details: 75 yr old f here for f/u RECAP She has had constant brain fog for months, told she has RENA and and waiting for a machine she had brain MRI which was nml she has a painful spot in the head she has projectile diarrhea for 8 months she can have some blood in stool she had partial colectomy for flat polyp 2011 she moved back from [place] 2 yrs ago and last colonoscopy 3 yr ago TESTS: carotid us-- nml MRI: no masses, or infarcts EGD?Colonoscopy: 10/03 Endoscopy Findings: erosive gastritis esophagitis duodenitis hiatal hernia inlet patch Colonoscopy Findings: diverticulosis colon polyp internal hemorrhoids BX: duodentiis, tubular adenoma, reflux changes -moderate chronic esophagitis INTERIM: she has been losing weight some of it is deliberate denies abdominal pain, no n.v poor sleep due to noise from neighbor PCP ordered CXR and CT scan EXAM: GENERAL: The patient is well developed and nontoxic. VITAL SIGNS:see workflow HEENT: Nonicteric sclerae, PERRLA, EOMI. Oropharynx clear. Moist mucous membranes. Conjunctivae appear well perfused. No thyroid mass. CHEST: Chest wall is nontender. HEART: Regular rate and rhythm without murmurs. LUNGS: Clear to auscultation bilaterally. ABDOMEN: Soft, positive bowel sounds, nontender, no organomegaly.no flank tenderness SKIN: No rash, no excessive bruising, petechiae, or purpura. NEUROLOGIC: Cranial nerves II-XII intact without motor/sensory deficit. Psych: normal affect A/P: 1/ Abn bowel habit, anemia, with hx of advanced polyp s/p resection, recent endoscopies with erosive gastritis, maybe contributing to her sx as well as nsaid use PLAN: 1/ repeat colo end of year or beginning of year 2/ await CT and CXR results ordered by PCP 3/ advised to buy some noise cancelling ear phones may help [facility] Medical History Myalgia Diabetes HTN (hypertension) Anemia Ulcerative colitis Osteoarthritis Obstructive sleep apnea hypopnea, mild Insomnia Hypersomnia Vertigo Surgical History History of esophagogastroduodenoscopy (EGD) Hx of colonoscopy Hx of cholecystectomy History of hip replacement History of colon resection Social History Housing: Apartment Alcohol intake: current Alcohol intake frequency: holidays/special occasions only Patient Tobacco Use Status: Former Tobacco user e-Cigarette/Vaping Use: Never Used Second Hand Smoke Exposure: No service: No Current occupational status: retired Current occupational exposures/hazards: No Cognitive needs: No Hearing needs: No Vision needs: Yes Physical Exam Vital Signs: Last Vital Signs Pulse 90 06/04/25 13:51 BP 148/65 H 06/04/25 13:51 BMI result Body Mass Index 30.6 Assessment & Plan Assessment & Plan (1) Weight loss: Code(s): R63.4 - Abnormal weight loss Category: Medical Plan: as above Coding Level of Care Code Est Pt Level 3 (62838) Diagnoses Weight loss R63.4
[2025-06-04 13:51] VITALS: BP 148/65; PULSE 90; BMI 30.6
--- OUTSIDE RECORDS SUMMARY | 2025-06-04 15:06 | XMS_ITS | Patient Health Record ---
Author Organization [facility] Address [address] [facility] [address] [place], [place] [id number] Care Team Providers Care Robotics Specialist Name Role Phone ALICIA VIZCAINO MD Primary Care Provider Unavail able TREASURE OSEI Unavailable [phone] Reason For Referral No Information Medications Medication [...] Status Risk Notes Problem Acquired trigger finger (7958464) Trigger finger, left middle finger (M65.332) Active confirmed Plan Of Treatment Pending Test Test Name Order Date Injection-Single Tendon/Lig 09/17/2015 INJECTION KENALOG 10 MG 09/17/2015 Insurance Providers Payer Name Payer Address Payer Phone Subscriber Number Group Number Insured Name Patient Relationship to Insured Coverage Start Date Coverage End Date MEDICARE PART B [address] [address] [place] MICHELLE [phone] [id number] MINDAKASEY GUZMAN Self - patient is the insured [employer] [address] [place], [place] [id number] FILEMON MACKAYILA Self - patient is the insured Medical (General) History Medical History History ICD Code hypertension: Yes osteoarthritis: Yes diabetes mellitus: Yes cancer: Yes restless leg syndrome: Yes Carpal tunnel syndrome Surgical History Surgery Date(Month/Year) removal of 20 inches of colon/ colon can cer 01/20/2007
== END 2025-06-04 14:13 | disposition home or self-care (01) ==
LOC: HO.HGI 13:48
PROVIDERS: PCP Family Medicine; Visit Provider Internal Medicine Gastroenterology
DX: R63.4 Abnormal weight loss (principal)
CPT/HCPCS: 99213

== ENCOUNTER → 2025-06-04 13:47 | Outpatient (BNVA) | payer MEDICARE, SELFPAY | PROVIDERS: PCP Family Medicine; Visit Provider Internal Medicine Gastroenterology | DX: R63.4 Abnormal weight loss (principal) | CPT/HCPCS: 99212 ==

== ENCOUNTER 2025-07-19 07:35 | Outpatient (AMB) | payer MEDICARE, SELFPAY ==
--- NOTE | 2025-07-19 07:41 | MHC.OFFVIS ---
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 she is sleeping good Neck pain is better she did vestibular therapy Home sleep test was c/w mild sleep apnea- she could not tolerate CPAP. AHI was 7 and o2 satish was 73%. she lost 20 lbs since her sleep study and is sleeping better. Notes 02/23/24 Her main issues are chronic dizziness, feeling foggy, difficulty falling asleep, light sensitivity, chronic fatigue , neck pain etc. she also reports pressure points through out the body. she was fine until 1 year ago - she had a bout vertigo ( spinning sensation) , she did some exercises which helped when turns to left but still has dizziness when she turns to right . she feels like she is not right in space. she denies double vision. she also has chronic tinnitus which worsened in the past 1 year.she denies headaches but has light sensitivity . she started noticing neck tightness and discomfort 1 month ago and it radiates to the back of skull and neck and she has a sensitive spot . she denies depression or anxiety. ABout 6 months ago she started noticing points in her body that are painful and she calls them pressure points/ Ifs he moves her head quickly she feels like she is losing her vision briefly. she has trouble falling asleep and staying asleep and has daytime fatigue. 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 No head injuries. [facility] Medical History Myalgia Diabetes HTN (hypertension) Anemia Ulcerative colitis Osteoarthritis Obstructive sleep apnea hypopnea, mild Insomnia Hypersomnia Vertigo Surgical History History of esophagogastroduodenoscopy (EGD) Hx of colonoscopy Hx of cholecystectomy History of hip replacement History of colon resection Social History Housing: Apartment Alcohol intake: current Alcohol intake frequency: holidays/special occasions only Patient Tobacco Use Status: Former Tobacco user e-Cigarette/Vaping Use: Never Used Second Hand Smoke Exposure: No service: No Current occupational status: retired Current occupational exposures/hazards: No Cognitive needs: No Hearing needs: No Vision needs: Yes Physical Exam Vital Signs: Last Vital Signs Pulse 72 07/19/25 07:42 BP 122/78 07/19/25 07:42 Pulse Ox 98 07/19/25 07:42 Oxygen Delivery Method Room Air 07/19/25 07:42 BMI result Body Mass Index 31.2 Const General: cooperative, healthy appearing and comfortable Nutritional Appearance: overweight Orientation/consciousness: patient oriented x3 Limitations: no limitations HEENT Other: neck tightness- left levator and splenius tenderness mild restricted range of motion Eyes Pupils: Equal, round and reactive pupils present Neuro General: patient oriented x3, gait normal, tone normal, moves all extremities and no focal motor deficits Cranial nerves: Yes Facial sensation intact/muscles of mastication intact, Yes Equal, round and reactive pupils present, Yes Bilaterally intact EOM present, Yes Nystagmus not present, Yes Normal facial strength present, Yes Midline tongue present, Yes Symmetric palate elevation present and Yes Ability to bilaterally elevate shoulders present Cognition (Neuro): normal cognition Gait exam (Neuro): Normal gait present Motor exam (neuro): 5/5 motor strength present throughout and Normal motor muscle tone present throughout Coordination: [id number] test normal Assessment & Plan Assessment & Plan (1) Vertigo: Comment: chronic with tinnitus / menieres ?vestibular dysfunction? vestibular migraine Code(s): R42 - Dizziness and giddiness Category: Medical (2) Obstructive sleep apnea hypopnea, mild: Comment: lost 20 lbs and is doing well. Not on CPAP Code(s): G47.33 - Obstructive sleep apnea (adult) (pediatric) Category: Medical (3) Cervicalgia: Comment: ? cervical dystonia related to arthritis Code(s): M54.2 - Cervicalgia Category: Medical Plan MRI Brain - to r/o brainstem lesions Continue gabapentin 100mg 1-3 caps qhs for neck pain\ vestibular therapy- continue exercises Coding Level of Care Code Est Pt Level 4 (50206) Diagnoses Vertigo R42 Obstructive sleep apnea hypopnea, mild G47.33 Cervicalgia M54.2
[2025-07-19 07:42] VITALS: BP 122/78; PULSE 72; O2SAT 98; BMI 31.2
== END 2025-07-19 08:24 | disposition home or self-care (01) ==
LOC: HO.HSMS 07:36
PROVIDERS: PCP Family Medicine; Visit Provider Psychiatry & Neurology Neurology
DX: R42 Dizziness and giddiness (principal); G47.33 Obstructive sleep apnea (adult) (pediatric); M54.2 Cervicalgia
CPT/HCPCS: 99214

== ENCOUNTER → 2025-07-19 07:35 | Outpatient (BNVA) | payer MEDICARE, SELFPAY | PROVIDERS: PCP Family Medicine; Visit Provider Psychiatry & Neurology Neurology | DX: R42 Dizziness and giddiness (principal); R53.83 Other fatigue; G47.33 Obstructive sleep apnea (adult) (pediatric); M54.2 Cervicalgia; Z87.891 Personal history of nicotine dependence | CPT/HCPCS: 99212 ==

== ENCOUNTER 2025-08-27 15:03 | Outpatient (REF) | payer MEDICARE, SELFPAY ==
--- NOTE | ~2025-08-27 | CT_ITS ---
EXAMINATION: CT ABDOMEN AND PELVIS WITH CONTRAST CLINICAL INFORMATION: Abnormal weight loss COMPARISON: None available. TECHNIQUE: Multidetector volumetric images were obtained from the superior aspect of the liver through the pubic symphysis following administration 85 mL of Omnipaque 350 intravenous contrast. Sagittal and coronal reformatted images were obtained on the technologist's workstation. Oral contrast: No This CT examination was performed using dose optimization techniques as appropriate, variously including the following: *Automated exposure control *Adjustment of mA and/or kV according to patient size (this includes techniques or standardized protocols for targeted exams where dose is matched to indication/reason for exam; i.e. extremities or head) *Use of iterative reconstruction technique FINDINGS: LUNG BASES: The visualized lung bases are clear.. LIVER, GALLBLADDER, AND BILIARY TREE: Low-attenuation of the liver with respect to spleen, could reflect mild hepatic steatosis. No suspicious liver lesions. No intrahepatic biliary duct dilatation. Status postcholecystectomy. CBD caliber is within normal limits, status postcholecystectomy. PANCREAS: Unremarkable. No acute inflammatory changes. SPLEEN: Unremarkable. ADRENAL GLANDS: Mild fullness of the left adrenal gland. No discrete nodules seen. KIDNEYS AND URETERS: Symmetric enhancement. No suspicious lesions. Minimal bilateral pelvic fullness. No hydroureter. No radiopaque renal calculi. BLADDER: Unremarkable. No calculi. GASTROINTESTINAL TRACT: There is wall thickening/prominence of the stomach, which could be related to partial distention. No dilated small or large bowel loops. There is contrast within the small bowel loops. The large colon is nondistended. Small amount of contrast in the proximal ascending colon. Colonic diverticulosis, without evidence of diverticulitis. Large colon is nondistended, with prominent stool in the large colon, limiting evaluation for mass lesion. Appendix appears unremarkable. Peritoneum: No pneumoperitoneum. No ascites. No organized fluid collection. No significant mesenteric inflammatory changes. ABDOMINAL WALL: No significant hernia. LYMPH NODES: No pathologically enlarged lymph nodes are identified. VASCULAR: Abdominal aorta is normal caliber. The hepatic and portal veins are enhancing. PELVIC VISCERA: Multiple calcifications in the uterus, likely calcified fibroids. No free fluid in the pelvis. OSSEOUS STRUCTURES: Grade 1/2 anterolisthesis of L4-5.. Multilevel degenerative changes in the spine. No suspicious lytic or blastic lesions. Right hip arthroplasty. CT/CT abdomen pelvis w IV con IMPRESSION: 1. Mild hepatic steatosis. 2. Status postcholecystectomy. 3. Colonic diverticulosis without evidence of diverticulitis. 4. Apparent wall prominence of the stomach, could be due to lack of distention versus other etiologies. Endoscopy as clinically indicated.. 5. Large colon is nondistended, and has moderate-large volume stool. This limits evaluation. Given the clinical history, consider colonoscopy. Fleischner guidelines were followed. Electronically signed by: Carroll Rios MD 08/28/2025 12:12 PM RAY BILL
[2025-08-27] MEDS: iohexoL 350 MG/ML 100 ML INFUS..BTL IV (16:00)
[2025-08-29 14:46] LABS: Creatinine POC 0.8 mg/dL (0.5-1.4); GFR POC > 60
== END 2025-08-27 15:04 | disposition home or self-care (01) ==
LOC: HO.CT 15:03
PROVIDERS: PCP Family Medicine; Visit Provider Physician Assistant
DX: R19.7 Diarrhea, unspecified (principal); D64.9 Anemia, unspecified; R63.5 Abnormal weight gain
CPT/HCPCS: 74177; 82565; Q9967

== ENCOUNTER → 2025-08-27 15:05 | Outpatient (BNV) | payer MEDICARE, SELFPAY | PROVIDERS: PCP Family Medicine; Visit Provider Radiology Diagnostic Ultrasound | DX: K76.0 Fatty (change of) liver, not elsewhere classified (principal); K57.30 Diverticulosis of large intestine without perforation or abscess without bleeding | CPT/HCPCS: 74177 ==

== ENCOUNTER 2025-08-29 13:39 | Outpatient (REF) | payer MEDICARE, SELFPAY ==
[2025-08-29 18:13] LABS: MANUAL DIFF FLAG NO
[2025-08-29 18:20] LABS: Hematocrit 36.2 % (37.0-47.0); Hemoglobin 12.2 g/dl (12.0-16.0); Imm Gran Abs Auto 0.03 X10*3/uL (0.00-0.03); Imm Gran Pct Auto 0.4 % (0.0-0.4); Lymphocytes Absolute Auto 2.3 X10*3/uL (1.2-4.9); Mean Corpuscular HGB Conc 33.7 g/dl (31.0-35.0); Mean Corpuscular Hemoglobin 32.0 pg (27.0-33.0); Mean Corpuscular Volume 95.0 fL (80.0-98.0); NRBC Abs Auto 0.000 X10*3/uL (0.0-0.012); NRBC Pct Auto 0.0 /100WBC (0.0-0.2); Platelet Count 268 X10*3/uL (160-400); Red Blood Count 3.81 X10*6/uL (4.20-5.50); White Blood Count 8.3 X10*3/uL (4.8-10.8)
[2025-08-29 19:25] LABS: Microalbum/Creatinine Ratio Ur 7.8 ug/mg cr (<30)
[2025-08-29 19:42] LABS: Alanine Aminotransferase 22 U/L (0-31); Albumin Level 4.6 g/dL (3.5-5.0); Alkaline Phosphatase 104 U/L (39-117); Anion Gap 15 (12-20); Aspartate Amino Transferase 26 U/L (5-31); Blood Urea Nitrogen 23 mg/dL (9-16); Calcium 9.4 mg/dL (8.4-10.2); Carbon Dioxide 23 mmol/L (22-29); Chloride 105 mmol/L (96-108); Estimated Glomerular Filt Rate > 60; Potassium 3.7 mmol/L (3.3-5.1); Sodium 139 mmol/L (135-145); Total Protein 7.2 g/dL (6.5-8.0)
== END 2025-08-29 13:40 | disposition home or self-care (01) ==
LOC: HO.WFDLDS 13:39
PROVIDERS: PCP Family Medicine; Visit Provider Physician Assistant
DX: I10 Essential (primary) hypertension (principal); E78.5 Hyperlipidemia, unspecified; E11.9 Type 2 diabetes mellitus without complications; R63.4 Abnormal weight loss; R42 Dizziness and giddiness; N18.9 Chronic kidney disease, unspecified; D64.9 Anemia, unspecified; R93.5 Abnormal findings on diagnostic imaging of other abdominal regions, including retroperitoneum; G47.10 Hypersomnia, unspecified; G47.33 Obstructive sleep apnea (adult) (pediatric); H53.9 Unspecified visual disturbance
CPT/HCPCS: 36415; 80053; 82043; 82570; 83036; 84443; 85025; 99212

== ENCOUNTER 2025-08-29 13:39 | Outpatient (AMB) | payer MEDICARE, SELFPAY ==
--- NOTE | 2025-08-29 13:47 | MHC.PC.OV ---
Vital Signs 08/29/25 13:53 Height 5 ft Weight 154 lb 4 oz BMI 30.1 BP 132/66 Blood Pressure Location Rt brachial Position Sitting Respiration 14 Pulse 82 Pulse Source Pulse Oximeter Temp 98.4 F Temp Source Oral Pulse Oximetry (%) 94 Oxygen Delivery Method Room Air Intake Visit Reasons: bp and meds Intake Note: Follow up. Had abdomen and pelvis CT scan yesterday. In a mental fog and dizzy since covid 5 years ago. Allergies No Known Allergies Allergy (Verified 08/29/25 13:51) Medication List - Last Reconciled 08/29/25 by Katherin Mckeon PA-C atorvastatin 20 mg PO BEDTIME 90 days cholecalciferol (vitamin D3) 25 mcg PO DAILY 90 days empagliflozin (Jardiance) 10 mg PO QAM gabapentin 300 mg (3 x 100 mg) PO DAILY MDD 300mg irbesartan 75 mg PO DAILY Lactobacillus acidophilus 50 mmu cells PO ONCE latanoprost 0.005% 1 drp ophthalmic (eye) QPM melatonin 5 mg PO BEDTIME PRN 3 months pantoprazole 40 mg PO DAILY timolol maleate 0.5% drps ophthalmic (eye) Tobacco use date assessed: 08/29/25 Dental Screening Dental Screen Date: 05/24/25 HPI bp and meds HPI Details Pt is a 75 y.o female who presents today for a follow up. She has a significant past medical history of vertigo, hypertension, hyperlipidemia, type 2 diabetes and CKD. General: In the last 8-9 months she has lost 35 lb. I had referred her to Heme-Onc and GI GI was waiting on the CT which was ordered a few months ago and just completed [address]. [address] report does indicate that she should have a colonoscopy. [facility] ordered labs, not yet completed She never had the chest x-ray Neuro: She went to PT for vertigo. She has had an MRI, CT, sleep studies and states that there has been no resolution of this but has had for to go for years. She has followed with vestibular rehab, Neurology and ENT. She says that she just lives with it and moves her head very slowly. She has to take her time going down the stairs. -neurology recommended MRI of the brain to rule out brainstem lesions. Patient has not heard about this Endo: T2DM on Jardiance 10 mg. Last A1c was 6. 3. She does have a nephropathy. She is on an THAIS inhibitor. -recently started on Jardiance for the nephropathy Nephro: At our last visit I advised her to start taking NSAIDs. She has a history of the CKD and gastritis. CV: Blood pressure today in the office is 132/66. She is currently on irbesartan 150 mg daily. Cholesterol is managed with atorvastatin 20 mg. GI: On pantoprazole 40 mg daily. Following with GI for chronic diarrhea. Up-to-date on double endoscopy. [facility] Medical History Myalgia Diabetes HTN (hypertension) Anemia Ulcerative colitis Osteoarthritis Obstructive sleep apnea hypopnea, mild Insomnia Hypersomnia Vertigo Surgical History History of esophagogastroduodenoscopy (EGD) Hx of colonoscopy Hx of cholecystectomy History of hip replacement History of colon resection Social History Housing: Apartment Alcohol intake: current Alcohol intake frequency: holidays/special occasions only Patient Tobacco Use Status: Former Tobacco user e-Cigarette/Vaping Use: Never Used Second Hand Smoke Exposure: No service: No Current occupational status: retired Current occupational exposures/hazards: No Cognitive needs: No Hearing needs: No Vision needs: Yes Questionnaire Thrive Questionnaire Date Thrive assessed: 10/25/24 I am a: Patient What is your living situation today?: I have a steady place to live Within the past 12 months, did the food you bought not last and you didn't have the money to get more?: Never true Within the past 12 months, did you worry whether your food would run out before you got money to buy more?: Never true Do you have trouble paying for medicines?: No Do you have trouble getting transportation to medical appointments?: No Do you have trouble paying your heating and electricity bill?: No Do you have trouble taking care of your child, family member or friend?: I choose not to answer this question Do you have trouble with day-to-day activities such as bathing, preparing meals, shopping, managing finances, etc.?: No Are you currently unemployed and looking for a job?: No Are you interested in more education?: No Please select the resources that you would like help with: None Currently or been in a relationship where the following occur: No concerns reported THRIVE Score: 0 AUDIT C Alcohol Use Questionnaire (AUDIT-C) 1. How often do you have a drink containing alcohol?: Monthly or less 2. How many drinks containing alcohol do you have on a typical day when you are drinking?: 1 or 2 3. How often do you have six or more drinks on one occasion?: Never Total Score: 1 JESSICA-7 AMB Questionnaire JESSICA-7 Date JESSICA - 7 assessed: 11/01/23 Source: Developed by Drs. Robbin Ragsdale, Shruthi Nair, Davey Petty and colleagues, with an educational snehal from [employer]. Physical exam (Primary Care) Tobacco/Smoking Status: Tobacco use Status Tobacco use date assessed 05/24/25 08/29/25 13:49 Patient Tobacco Use Status Former Tobacco user 08/29/25 13:49 e-Cigarette/Vaping Use Never Used 08/29/25 13:49 Thrive Assessment: Date of Thrive Assessment Date Thrive assessed 10/25/24 08/29/25 13:49 Currently or been in a relationship where the following occur: No concerns reported Const Orientation/consciousness: patient oriented x3 HENMT Ears: hearing grossly normal bilaterally Neck Thyroid: Thyroid normal Lymphatic: no lymphadenopathy noted Resp Auscultation: clear to auscultation bilaterally Cardio Rate: regular rate Rhythm: regular rhythm Heart sounds: S1 normal heart sound present and S2 normal heart sound present GI Inspection: Yes normal to inspection Palpation (GI): Soft to palpation and Other GI palpation findings present (nontender, no cva tenderness) Auscultation: normoactive bowel sounds Rectal Exam - Female: deferred Skin General skin exam: no rashes or lesions noted Neuro General: patient oriented x3, gait normal and no focal motor deficits Results Reviewed Results Reviewed: Reason for Exam: R63.4 - Abnormal weight loss EXAMINATION: CT ABDOMEN AND PELVIS WITH CONTRAST CLINICAL INFORMATION: Abnormal weight loss COMPARISON: None available. TECHNIQUE: Multidetector volumetric images were obtained from the superior aspect of the liver through the pubic symphysis following administration 85 mL of Omnipaque 350 intravenous contrast. Sagittal and coronal reformatted images were obtained on the technologist's workstation. Oral contrast: No This CT examination was performed using dose optimization techniques as appropriate, variously including the following: *Automated exposure control *Adjustment of mA and/or kV according to patient size (this includes techniques or standardized protocols for targeted exams where dose is matched to indication/reason for exam; i.e. extremities or head) *Use of iterative reconstruction technique FINDINGS: LUNG BASES: The visualized lung bases are clear.. LIVER, GALLBLADDER, AND BILIARY TREE: Low-attenuation of the liver with respect to spleen, could reflect mild hepatic steatosis. No suspicious liver lesions. No intrahepatic biliary duct dilatation. Status postcholecystectomy. CBD caliber is within normal limits, status postcholecystectomy. PANCREAS: Unremarkable. No acute inflammatory changes. SPLEEN: Unremarkable. ADRENAL GLANDS: Mild fullness of the left adrenal gland. No discrete nodules seen. KIDNEYS AND URETERS: Symmetric enhancement. No suspicious lesions. Minimal bilateral pelvic fullness. No hydroureter. No radiopaque renal calculi. BLADDER: Unremarkable. No calculi. GASTROINTESTINAL TRACT: There is wall thickening/prominence of the stomach, which could be related to partial distention. No dilated small or large bowel loops. There is contrast within the small bowel loops. The large colon is nondistended. Small amount of contrast in the proximal ascending colon. Colonic diverticulosis, without evidence of diverticulitis. Large colon is nondistended, with prominent stool in the large colon, limiting evaluation for mass lesion. Appendix appears unremarkable. Peritoneum: No pneumoperitoneum. No ascites. No organized fluid collection. No significant mesenteric inflammatory changes. ABDOMINAL WALL: No significant hernia. LYMPH NODES: No pathologically enlarged lymph nodes are identified. VASCULAR: Abdominal aorta is normal caliber. The hepatic and portal veins are enhancing. PELVIC VISCERA: Multiple calcifications in the uterus, likely calcified fibroids. No free fluid in the pelvis. OSSEOUS STRUCTURES: Grade 1/2 anterolisthesis of L4-5.. Multilevel degenerative changes in the spine. No suspicious lytic or blastic lesions. Right hip arthroplasty. CT/CT abdomen pelvis w IV con IMPRESSION: 1. Mild hepatic steatosis. 2. Status postcholecystectomy. 3. Colonic diverticulosis without evidence of diverticulitis. 4. Apparent wall prominence of the stomach, could be due to lack of distention versus other etiologies. Endoscopy as clinically indicated.. 5. Large colon is nondistended, and has moderate-large volume stool. This limits evaluation. Given the clinical history, consider colonoscopy. Fleischner guidelines were followed. Electronically signed by: Carroll Rios MD 08/28/2025 12:12 PM EST Laboratory Tests 05/14/25 05/16/25 05/24/25 08:46 13:32 14:07 WBC 7.9 RBC 3.36 L Hgb 10.6 L Hct 31.0 L Plt Count 271 Creatinine 1.26 Estimated GFR 41 Random Glucose 132 H Hgb A1c (Clinic) 6.3 H Ferritin 144 Vitamin B12 418 Coding Level of Care Code Est Pt Level 4 (28787) Complex EM visit Add On G2211 Diagnoses Hypertension I10 Hyperlipidemia E78.5 Well controlled diabetes mellitus E11.9 Anemia D64.9 [address] loss R[address] of the abdomen R93.5 Dizziness R42 Assessment & Plan Assessment & Plan (1) Hypertension: Code(s): I10 - Essential (primary) hypertension Category: Medical Plan: wnl continue current plan (2) Hyperlipidemia: Code(s): E78.5 - Hyperlipidemia, unspecified Category: Medical Plan: Continue atorvastatin (3) Well controlled diabetes mellitus: Code(s): E11.9 - Type 2 diabetes mellitus without complications Category: Medical Plan: Continue current regimen. We will recheck labs today. (4) Anemia: Code(s): D64.9 - Anemia, unspecified Category: Medical Plan: advised follow up with heme/onc (5) Weight loss: Code(s): R63.4 - Abnormal weight loss Category: Medical Plan: reminded chest xr advised on recommendations from ct labs today mri ordered (6) Abnormal CT of the abdomen: Code(s): R93.5 - Abnormal findings on diagnostic imaging of other abdominal regions, including retroperitoneum Category: Medical Plan: has follow up with gi message sent to pts bark spudder with imaging (7) Dizziness: Code(s): R42 - Dizziness and giddiness Category: Medical Plan: MRI ordered per neurology note. We will follow up pending test results. Orders: Orders Complete Blood Count Auto Diff Today E11.9 - Type 2 diabetes mellitus without complications, E78.5 - Hyperlipidemia, unspecified, I10 - Essential (primary) hypertension, R63.4 - Abnormal weight loss Comprehensive [place]. Panel Fast Today E11.9 - Type 2 diabetes mellitus without complications, E78.5 - Hyperlipidemia, unspecified, I10 - Essential (primary) hypertension, R63.4 - Abnormal weight loss Hemoglobin A1c Today E11.9 - Type 2 diabetes mellitus without complications, E78.5 - Hyperlipidemia, unspecified, I10 - Essential (primary) hypertension, R63.4 - Abnormal weight loss, R73.01 - Impaired fasting glucose MR head/brain wo con Today G47.10 - Hypersomnia, unspecified, G47.33 - Obstructive sleep apnea (adult) (pediatric), H53.9 - Unspecified visual disturbance, R42 - Dizziness and giddiness, R63.4 - Abnormal weight loss TSH reflex Free T4 Today E11.9 - Type 2 diabetes mellitus without complications, E78.5 - Hyperlipidemia, unspecified, I10 - Essential (primary) hypertension, R63.4 - Abnormal weight loss Patient Instructions: chest xray brain mri labs call hematology short term follow up
[2025-08-29 13:53] VITALS: BP 132/66; PULSE 82; RESP 14; TEMP 36.9; O2SAT 94; BMI 30.1
--- OUTSIDE RECORDS SUMMARY | 2025-08-30 01:48 | XMS_ITS | Patient Health Record ---
Author Organization [facility] Address [address] [facility] [address] [place], [place] [id number] Care Team Providers Care Boarding Machine Operator Name Role Phone ALICIA VIZCAINO MD Primary Care Provider Unavail able TREASURE OSEI Unavailable [phone] Reason For Referral No Information Medications Medication [...] Status Risk Notes Problem Acquired trigger finger (5303876) Trigger finger, left middle finger (M65.332) Active confirmed Plan Of Treatment Pending Test Test Name Order Date Injection-Single Tendon/Lig 09/17/2015 INJECTION KENALOG 10 MG 09/17/2015 Insurance Providers Payer Name Payer Address Payer Phone Subscriber Number Group Number Insured Name Patient Relationship to Insured Coverage Start Date Coverage End Date MEDICARE PART B [address] [address] [place] [phone] [id number] MINDAKASEY GUZMAN Self - patient is the insured [facility] [address] [place], [place] [id number] FILEMON MACKAYILA Self - patient is the insured Medical (General) History Medical History History ICD Code hypertension: Yes osteoarthritis: Yes diabetes mellitus: Yes cancer: Yes restless leg syndrome: Yes Carpal tunnel syndrome Surgical History Surgery Date(Month/Year) removal of 20 inches of colon/ colon can cer 01/20/2007
== END 2025-08-29 14:23 | disposition home or self-care (01) ==
LOC: HO.HMCFM 13:41
PROVIDERS: PCP Physician Assistant; Visit Provider Physician Assistant
DX: I10 Essential (primary) hypertension (principal); E78.5 Hyperlipidemia, unspecified; E11.9 Type 2 diabetes mellitus without complications; D64.9 Anemia, unspecified; R63.4 Abnormal weight loss; R93.5 Abnormal findings on diagnostic imaging of other abdominal regions, including retroperitoneum; R42 Dizziness and giddiness

== ENCOUNTER → 2025-09-27 16:28 | Outpatient (BNV) | payer MEDICARE, SELFPAY | PROVIDERS: PCP Physician Assistant; Visit Provider Radiology Body Imaging | DX: R63.4 Abnormal weight loss (principal) | CPT/HCPCS: 70551 ==

== ENCOUNTER 2025-09-27 16:32 | Outpatient (REF) | payer MEDICARE, SELFPAY ==
--- NOTE | ~2025-09-27 | MR_ITS ---
EXAMINATION: MR BRAIN WITHOUT CONTRAST CLINICAL INFORMATION: R63.4 - Abnormal weight loss COMPARISON: Brain MRI on April 14, 2024 TECHNIQUE: MRI of the brain was obtained using routine sequences without contrast. FINDINGS: Brain parenchyma: Similar mild confluent white matter changes in the periventricular white matter. No shift of midline structures. No evidence of acute infarct, parenchymal hemorrhage or mass lesion. Note is made of left vertebral artery causing mild indentation over the left medulla (9:25/28). Ventricles/extra-axial spaces: Mild generalized prominence of the ventricles and extra-axial CSF spaces likely represents age appropriate brain volume loss. No hydrocephalus. No extra-axial fluid collection. Extracranial structures: Arterial flow voids of the skull base are preserved. Mucus retention cysts in bilateral maxillary sinuses. Apparent asymmetry of the parotid glands is most likely artifactual. MR/MR head/brain wo con IMPRESSION: 1. No acute intracranial findings 2. Findings suggestive of left vertebral artery compression syndrome. Electronically signed by: Justino Marks MD 09/27/2025 05:41 PM RAY
--- OUTSIDE RECORDS SUMMARY | 2025-09-27 19:44 | XMS_ITS | Clinical Summary ---
Author Organization [facility] [address] [facility] [address] Address [address] [facility] [place] [address] Phone Care Team Providers Care Customer Service Analyst Name Role Phone Unavailable Primary Care Provider Unavailabl e Social History Tobacco Use Types Packs/Day Years [...] 1968 Pneumococcal Vaccine: 50+ Years (1 of 1 - PCV) 1999 Zoster Vaccines (1 of 2) 1999 Depression Screening 10/11/2024 Cholesterol Screening (Lipid Panel) 11/28/2024 Diabetes: Annual Urine Albumin-Creatinine Ratio (uACR) 11/28/2024 Diabetes: Blood Sugar Contro l Test (HGBA1C) 11/28/2024 Falls Risk Assessment 11/28/2024 Hepatitis C Screening 11/28/2024 Hypertension/CHF/CAD Annual BMP Blood Test 11/28/2024 Medicare Annual Wellness Visit 11/28/2024 Osteoporosis Screening (Bone Density Screening) 11/28/2024 Social Influencers of Health Screening 11/28/2024 COVID-19 Vaccine (4 - 2024-2 6 season) 2025 07/05/2024, 09/30/2023, 08/03/2022 Influenza Vaccine (#1) 2025 4, 07/10/2023, 07/13/2022 RSV Immunization Adult Patients Completed 08/26/2023 HIB Vaccines Aged Out No longer eligi [...] on patient's age to complete this topic Insurance [facility] MEDICAID - [place] MEDICARE
--- OUTSIDE RECORDS SUMMARY | 2025-09-27 19:44 | XMS_ITS | Patient Health Record ---
Author Organization [facility] Address [address] [facility] [address] [place], [place] [id number] Care Team Providers Care Shipping Packer Name Role Phone ALICIA VIZCAINO MD Primary Care Provider Unavail able TREASURE OSEI Unavailable [phone] Reason For Referral No Information Medications Medication [...] Status Risk Notes Problem Acquired trigger finger (1805231) Trigger finger, left middle finger (M65.332) Active confirmed Plan Of Treatment Pending Test Test Name Order Date Injection-Single Tendon/Lig 09/17/2015 INJECTION KENALOG 10 MG 09/17/2015 Insurance Providers Payer Name Payer Address Payer Phone Subscriber Number Group Number Insured Name Patient Relationship to Insured Coverage Start Date Coverage End Date MEDICARE PART B [address] [address] [place] [phone] [id number] MINDAKASEY GUZMAN Self - patient is the insured [facility] [address] [place], [place] [id number] [id number] FILEMON MACKAYILA Self - patient is the insured Medical (General) History Medical History History ICD Code hypertension: Yes osteoarthritis: Yes diabetes mellitus: Yes cancer: Yes restless leg syndrome: Yes Carpal tunnel syndrome Surgical History Surgery Date(Month/Year) removal of 20 inches of colon/ colon can cer 01/20/2007
== END 2025-09-27 16:33 | disposition home or self-care (01) ==
LOC: HO.MRI 16:32
PROVIDERS: PCP Physician Assistant; Visit Provider Physician Assistant
DX: G47.33 Obstructive sleep apnea (adult) (pediatric) (principal); G47.10 Hypersomnia, unspecified; H53.9 Unspecified visual disturbance; R63.4 Abnormal weight loss; R42 Dizziness and giddiness
CPT/HCPCS: 70551